=== PATIENT | female | born 1985 | race Caucasian/White ===

== ENCOUNTER → 2017-06-20 09:48 | Outpatient (CLI) | payer OTHER, SELFPAY ==
--- NOTE | 2017-06-20 10:01 | US_ITS ---
STUDY: SECOND AND THIRD TRIMESTER OBSTETRICAL ULTRASOUND REASON FOR EXAM: Female, 32 years old. Routine survey. LMP: January 26, 2017. TECHNIQUE: Transabdominal PRIOR ULTRASOUND: None. FINDINGS: There is a single intrauterine fetus. The fetus is in an transverse lie with the head on the maternal left side. There is demonstrated cardiac activity with a heart rate of 142 bpm. There is a normal amniotic fluid volume. The largest amniotic fluid pocket measures 4.54 cm. The amniotic fluid index (RG) is 14.6 cm. The placenta is right lateral in location and is not low lying. There are Grade 0 placental changes. The cervix measures 4.5 in length. The adnexal regions are not visualized. BIOMETRY: BPD: 4.88 cm: 20 weeks, 6 days HC: 18.42 cm: 20 weeks, 6 days AC: 15.68 cm: 20 weeks, 6 days FL: 3.47 cm: 21 weeks, 0 days CI: FL/BPD: 71% FL/HC: FL/AC: 22% HC/AC: 1.17 age by current US: 21 weeks, 0 days. JEAN CARLOS by current US: October 31, 2017. Estimated weight: 383 grams, +/- 56 grams, 53 %. Age by LMP: 20 weeks, 5 days. JEAN CARLOS by LMP: November 02, 2017.. ANATOMY: Gender: Male Cranium: Normal lateral ventricles. Normal choroid plexus. Normal cerebellum. Normal cisterna magna. Normal face, nose and lips. Chest: Normal 4-chamber heart. Abdomen/Pelvis: Normal diaphragm. Normal stomach. Normal abdominal wall. Normal cord insertion. Normal 3 vessel cord. Normal kidneys. Normal bladder. Spine: Normal cervical spine. Normal thoracic spine. Normal lumbar spine. Normal sacrum. Extremities: Normal bilateral upper extremities. Normal bilateral lower extremities. US/OB Anatomy Scan IMPRESSION: Single live uterine gestation with a mean gestational age of 21 weeks. Electronically Signed: Rickey Motley MD at 10:50 EST Tel [phone], Service support ,
== END ==
PROVIDERS: Family Provider Family Medicine; PCP Family Medicine; Visit Provider Obstetrics & Gynecology
DX: Z34.02 Encounter for supervision of normal first pregnancy, second trimester (principal)
CPT/HCPCS: 76805

== ENCOUNTER → 2017-09-09 12:15 | Outpatient (CLI) | payer OTHER, SELFPAY ==
--- NOTE | 2017-09-09 12:17 | US_ITS ---
STUDY: SECOND AND THIRD TRIMESTER OBSTETRICAL ULTRASOUND - LIMITED REASON FOR EXAM: Female, 32 years old. Routine survey. LMP: January 26, 2017. PRIOR ULTRASOUND: Comparison is made with prior examination dated June 20, 2017. TECHNIQUE: Transabdominal ultrasound evaluation was performed. FINDINGS: There is a single intrauterine fetus. The fetus is in a cephalic presentation. There is demonstrated cardiac activity with a heart rate of 136 bpm. There is a normal amniotic fluid volume. The largest amniotic fluid pocket measures 4.5 cm. The amniotic fluid index (RG) is 15.4 cm. The placenta is right lateral in location and is not low lying. There are Grade 1 placental changes. The cervix measures 4.5 cm in length. BIOMETRY: BPD: 8.41 cm: 34 weeks, 0 days HC: 30.14 cm: 33 weeks, 4 days AC: 29.51 cm: 33 weeks, 4 days FL: 6.42 cm: 33 weeks, 2 days Age by LMP: 32 weeks, 2 days. JEAN CARLOS by LMP: November 02, 2017. age by prior US: 32 weeks, 4 days. JEAN CARLOS by prior US: October 31, 2017. age by current US: 33 weeks, 5 days. JEAN CARLOS by current US: October 23, 2017. Estimated weight: 2192 grams, +/- 320 grams, 76 percentile. Gender: Male US/OB Limited With Biometrics IMPRESSION: There is a single live intrauterine gestation with a mean gestational age of 32 weeks and 4 days. The measurements obtained today fall within normal expected range. Electronically Signed: Rickey Motley MD at 14:37 EDT Tel [phone], Service support ,
== END ==
PROVIDERS: Family Provider Family Medicine; PCP Family Medicine; Visit Provider Obstetrics & Gynecology
DX: Z87.59 Personal history of other complications of pregnancy, childbirth and the puerperium (principal); Z3A.30 30 weeks gestation of pregnancy
CPT/HCPCS: 76816

== ENCOUNTER 2017-10-24 10:45 | Inpatient (IN) | payer OTHER, SELFPAY ==
--- NOTE | 2017-10-24 | PLAC_PTH ---
PATIENT: NOEMY LEARY LOC: [facility] U#:[id number] AGE/SX: 32/F ROOM: WP020 RE10/24/[address]: Dr. Nicolas Hong MD : [id number] BED: 1 DIS: 10/26/2017 SPEC #: [id number] RECD: 10/26/17 10:14 STATUS: TRE REPaulo #: [id number] JEN: 10/24/17 00:[address]: Nicolas Hong DEPT: SURGICAL PATHOLOGY RECD BY: Jaron Correia ENTERED: 10/26/17 10:15 SP TYPE: PLACENTA OTHR DR: Dr. Kia Wall DO Tissues: A - Vagina, NOS B - Placenta, NOS Procedures: Surgery Specimen Level III Surgery Specimen Level V HEADER OPERATION: Vaginal delivery PRE-OP DIAGNOSIS: Vaginal cyst; placenta abruption, nonreassuring heart tracing TISSUE SUBMITTED: A - Vaginal cyst, B - Placenta MICROSCOPIC DIAGNOSIS A. Vaginal cyst, biopsy: Consistent with Bartholin gland cyst. B. Placenta: Placental disc ? Bilobated placental disc (383 grams). - Focal chronic vasculitis of unknown etiology - Focal chronic inflammation decidual, maternal surface. Membranes ? No pathologic diagnosis Umbilical cord ? Three blood vessels, no pathologic diagnosis JUAN C:abhay 10/27/17 COMMENT Case has been reviewed in consultation with Dr. Vilchis who concurs with the above diagnosis. IDC:AM MICROSCOPIC DESCRIPTION Slides are reviewed. GROSS DESCRIPTION A ? Received in fixative is one container labeled with the patient's name and designated not further designated. Received is a piece of edward cyst with mucoid material measuring 0.6 x 0.6 x 0.3 cm. The specimen is bisected and submitted entirely in one cassette. JUAN C/abhay 10/25/17 B - SPECIMEN: PLACENTA / CLINICAL INFORMATION: A. Weight: 2.985 kg B. Gestational Age: 38 weeks C. Sex: Male PLACENTAL WEIGHT (POST FIXATION): 383 grams PLACENTAL DIMENSIONS: 26 x 17 x 2 cm, larger lobe measures 17 x 16 x 2 cm, and the smaller lobe measures 9 x 10 x 1.5. PLACENTAL SHAPE: Bilobated PLACENTAL WEIGHT FOR GESTATIONAL AGE: Within 10-99th percentile. MEMBRANES - Present A. Insertion: Marginal B. Site of rupture from edge: 6 cm from edge of placental disc C. Color of membrane: Edward-landeros D. Abnormalities: None UMBILICAL CORD - Present A. Color: Edward-landeros B. Insertion: Central C. Length: 32 cm D. Diameter: 1 cm E. Number of vessels: Three F. Abnormalities: None PLACENTAL DISC - Present A. Color of surface: Edward-landeros B. surface abnormalities: None C. Maternal cotyledons: Intact with minimal tears D. Attached retro placental clot: No clot E. Cut surface: Dark red and spongy F. Lesions: None G. Separate clot: Absent SECTIONS SUBMITTED: 1. Membrane roll 2. Cord, maternal end 3. Cord, end 4. Smaller lobe. 5. Placental disc, and maternal surfaces 6. Placental disc, and maternal surfaces SJ:abhay 10/26/17 TC: 5 CPT: 62284, 64300
[2017-10-24] MEDS: Lactated Ringers 1,000 ML 50 ML IV ×2 (11:15→12:16)
[2017-10-24 11:31] LABS: Hematocrit 37.5 % (37-47); Hemoglobin 13.1 g/dl (12.0-15.0); Mean Corp Hgb Conc 34.9 g/gl (32-36); Mean Corpuscular Volume 91.5 fL (81-99); Mean Platelet Vol. 12.5 fl (6.2-12.0); Platelet Count 201 K/mm3 (150-450); RBC Distribution Width CV 12.8 % (11.6-14.6); RBC Distribution Width SD 42.3 fl (35.1-43.9); Scan Indicated on CBC? Y/N NO; White Blood Count 10.3 K/mm3 (4.4-11.0)
[2017-10-24 11:46] VITALS: BMI 23.1
[2017-10-24] MEDS: fentaNYL-bupivacaine (epidural) 100 ML BAG EPIDURAL (12:45)
[2017-10-24] MEDS: Oxytocin 30 units/NS 500 ml 30 UNITS/500 ML IV.SOLN 334 UNITS IV (13:58)
--- NOTE | 2017-10-24 14:27 | PCM.HP.OB ---
History Date of Admission: 10/24/17 Final JEAN CARLOS: 11/02/17 Final JEAN CARLOS Source: LMP Gestational age: 38 Weeks and 5 Days History of this : This is a 32 year-old, G [], P [], at 38 weeks gestational age. Allergies No Known Allergies Allergy (Verified 05/21/13 07:39) Home Medications: Home Medications Vits [Prenatabs FA ] 1 tablet PO DAILY 05/21/13 Magnesium 250 mg PO DAILY 10/24/17 Smoking Status: Never smoker Alcohol: None History Past Pregnancies: h/o IUGR see [facility] H&P Past Pregnancies Delivery Date Name GA/Weeks Outcome Route Weight Infant Gender Labor Length Anesthesia Delivery Location Provider FOB Labs: GBS positive Physical Exam General: Alert, Oriented x3 Assessment/Plan 32yo female at 38&5 now s/p vacuum assisted vaginal delivery Routine care Please see vaginal delivery note
--- NOTE | 2017-10-24 14:30 | PCM.OB.VAG ---
Vaginal Delivery Maternal Presentation: Active Labor Amniotic Membrane Rupture Type: Artificial Amniotic Fluid Description: Bloody Final JEAN CARLOS: 11/02/17 Gestational age: 38 Weeks and 5 Days Date of Procedure: 10/24/17 Pre-Operative Diagnosis: Placental abruption, Non-reassuring heart tracing Post-Operative Diagnosis: Same Surgery/ Procedure Performed: Vacuum Assisted Vaginal Delivery - Excision of vaginal wall cyst Type of Anesthesia: Epidural Description of Procedure: Called when patient 7cm & had prolonged deceleration. Upon arrival to OB unit fhts were 120's. AROM for bloody fluid. Patient 8-9/C/0. She quickly progressed to anterior lip & then complete. Patient was prepped & draped in stirrups. Bladder was emptied via straight catheter. She pushed well to +2 station. Fhts were persistent in the 70's and decision made to use the vacuum. Fetus had already been confirmed in the OA position. Vacuum placed & position confirmed on head. With next ctx the head delivered with 1 pull of the vacuum. No pop-offs. Shoulders & body easily followed. Infant placed on maternal abdomen. 3vc clamped & cut in delayed fashion. Placenta delivered with minimal traction. Good uterine tone obtained. Vaginal cyst about 1cm noted to be on posterior vaginal wall was draining fluid & torn from delivery. The cyst was excised using scissors. This area was repaired with 3-0 vicryl while repairing the 2nd degree laceration. Presentation: DORIAN Placental Delivery Description: Spontaneous Placenta Disposition: [facility] Cord Vessel Description: 3 Vessels Cord Entanglement: None Estimated Blood Loss: 400ml A gender: Male (1 minute): 8 (5 minute): 9 Episiotomy Description: None Laceration: 2nd degree - perineal - repaired with 3-0 vicryl Medications given after delivery: IV Pitocin Complications: None
--- NOTE | 2017-10-24 14:41 | OP.PCM_ITS ---
Vaginal Delivery Maternal Presentation: Active Labor Amniotic Membrane Rupture Type: Artificial Amniotic Fluid Description: Bloody Final JEAN CARLOS: 11/02/17 Gestational age: 38 Weeks and 5 Days Date of Procedure: 10/24/17 Pre-Operative Diagnosis: Placental abruption, Non-reassuring heart tracing Post-Operative Diagnosis: Same Surgery/ Procedure Performed: Vacuum Assisted Vaginal Delivery - Excision of vaginal wall cyst Type of Anesthesia: Epidural Description of Procedure: Called when patient 7cm & had prolonged deceleration. Upon arrival to OB unit fhts were 120's. AROM for bloody fluid. Patient 8-9/C/0. She quickly progressed to anterior lip & then complete. Patient was prepped & draped in stirrups. Bladder was emptied via straight catheter. She pushed well to +2 station. Fhts were persistent in the 70's and decision made to use the vacuum. Fetus had already been confirmed in the OA position. Vacuum placed & position confirmed on head. With next ctx the head delivered with 1 pull of the vacuum. No pop-offs. Shoulders & body easily followed. Infant placed on maternal abdomen. 3vc clamped & cut in delayed fashion. Placenta delivered with minimal traction. Good uterine tone obtained. Vaginal cyst about 1cm noted to be on posterior vaginal wall was draining fluid & torn from delivery. The cyst was excised using scissors. This area was repaired with 3- 0 vicryl while repairing the 2nd degree laceration. Presentation: DORIAN Placental Delivery Description: Spontaneous Placenta Disposition: [facility] Cord Vessel Description: 3 Vessels Cord Entanglement: None Estimated Blood Loss: 400ml Infant A gender: Male (1 minute): 8 (5 minute): 9 Episiotomy Description: None Laceration: 2nd degree - perineal - repaired with 3-0 vicryl Medications given after delivery: IV Pitocin Complications: None
[2017-10-24] MEDS: 0.9% Saline Lock 10 ML Syringe IV (15:43)
[2017-10-24 19:58] VITALS: BP 155/99; PULSE 76; RESP 20; TEMP 37.3
[2017-10-24 20:00] VITALS: BP 140/91
[2017-10-25 00:45] VITALS: BP 130/76; PULSE 73; RESP 18; TEMP 36.8
--- NOTE | 2017-10-25 02:20 | NURSING ---
Taking over pt care at this time.
[2017-10-25] MEDS: Ibuprofen 600 MG Tablet PO ×2 (04:23→22:58)
[2017-10-25 04:28] VITALS: BP 140/87; PULSE 65; RESP 18; TEMP 36.4; O2SAT 97
[2017-10-25 06:51] LABS: Pathology Specimen OB SEE PATHOLOGY REPORT
[2017-10-25 08:30] VITALS: BP 113/72; PULSE 80; RESP 16; TEMP 36.9; O2SAT 96
[2017-10-25 11:57] VITALS: BP 127/80; PULSE 78; TEMP 36.6; O2SAT 96
--- NOTE | 2017-10-25 13:16 | PCM.PN.OB ---
Subjective: No complaints - Physical Exam General: Alert, Oriented x3 Abdomen: Soft, Non Tender, Non-Distended - ff mid & below umb Extremities: No Calf Tenderness Vital Signs Temp Pulse Resp BP Pulse Ox 97.8 F 78 16 127/80 H 96 10/25/17 11:57 10/25/17 11:57 10/25/17 08:30 10/25/17 11:57 10/25/17 11:57 Oxygen Delivery Method Room Air Weight: 130 lb 4.691 oz Body Mass Index (BMI) 23.1 Intake and Output for Last 24 Hours 10/23/17 10/24/17 10/25/17 23:59 23:59 23:59 Output Total 700 / 700 Balance -700 / -700 Medical Necessity - Tobacco Use Smoking Status: Never smoker Assessment/Plan PPD#1 Routine care
--- NOTE | 2017-10-25 13:18 | DCINST_ITS ---
Discharge Diet: No Restrictions Discharge Activity: May Drive, May Shower May resume sexual activity in: 4-6 weeks Additional Instructions: If you experience any of the following, contact your healthcare provider. * Bleeding that soaks a pad every hour for 2 hours * Fever 100.4 or higher * Unrelieved incision or abdominal pain * Swelling, redness, discharge or bleeding from your incision or episiotomy site * Your incision begins to separate * Problems urinating (including inability to urinate or burning while urinating) . * Visual changes * Severe headache * Flu-like symptoms * Pain or redness in one of both of your breasts * Pain, warmth, tenderness or swelling in your legs, especially the calf area * Frequent nausea and vomiting * Symptoms of depression or anxiety If you experience any of the following, call 911 or go to the nearest Emergency Room. * Chest pain * Problems breathing * Seizure activity * Partial or complete paralysis of a body part, slurred speech, weakness or drooping of the face, or a sudden inability to walk or hold your balance Allergies/Adverse Reactions: Allergies No Known Allergies Allergy (Verified 05/21/13 07:39) Medications to take at Discharge Vits [Prenatabs FA ] 1 tablet PO DAILY 05/21/13 Magnesium 250 mg PO DAILY 10/24/17 Primary Care Physician: Kia Wall DO [Primary Care Provider] -
--- NOTE | 2017-10-25 13:18 | PCM.DCVAG ---
Discharge Diet: No Restrictions Discharge Activity: May Drive, May Shower May resume sexual activity in: 4-6 weeks Additional Instructions: If you experience any of the following, contact your healthcare provider. Bleeding that soaks a pad every hour for 2 hours Fever 100.4 or higher Unrelieved incision or abdominal pain Swelling, redness, discharge or bleeding from your incision or episiotomy site Your incision begins to separate Problems urinating (including inability to urinate or burning while urinating). Visual changes Severe headache Flu-like symptoms Pain or redness in one of both of your breasts Pain, warmth, tenderness or swelling in your legs, especially the calf area Frequent nausea and vomiting Symptoms of depression or anxiety If you experience any of the following, call 911 or go to the nearest Emergency Room. Chest pain Problems breathing Seizure activity Partial or complete paralysis of a body part, slurred speech, weakness or drooping of the face, or a sudden inability to walk or hold your balance Allergies/Adverse Reactions: Allergies No Known Allergies Allergy (Verified 05/21/13 07:39) Medications to take at Discharge Vits [Prenatabs FA ] 1 tablet PO DAILY 05/21/13 Magnesium 250 mg PO DAILY 10/24/17 Primary Care Physician: Kia Wall DO [Primary Care Provider] -
[2017-10-25 15:53] VITALS: BP 124/86; PULSE 89; TEMP 36.7; O2SAT 97
[2017-10-25 20:11] VITALS: BP 124/87; PULSE 86; RESP 16; TEMP 36.9; O2SAT 98
[2017-10-26 03:00] VITALS: BP 118/71; PULSE 73; RESP 18; TEMP 36.9; O2SAT 98
[2017-10-26 08:50] VITALS: BP 121/82; PULSE 76; RESP 18; TEMP 36.8
--- NOTE | 2017-10-26 09:05 | PCM.PN.OB ---
Subjective: Doing well per patient and nursing staff. Ambulating and taking PO without difficulty. No complaint. Pain controlled. Planning D/C home today. Awaiting bilirubin level for baby, under bili lights at this time. without difficulty. - Physical Exam General: Alert, Oriented x3, Cooperative HEENT: Atraumatic, PERRLA, EOMI, Normocephalic Lungs: Clear to auscultation, No rhonchi, No wheeze Cardiovascular: Regular rate, Regular Rhythm, No murmurs Abdomen: Bowel Sounds Present, Soft, Non Tender, - - Fundus firm 2 below U Extremities: No edema Psych/Mental Status: Normal Affect, Appropriate Vital Signs Temp Pulse Resp BP Pulse Ox 98.4 F 73 18 118/71 98 10/26/17 03:00 10/26/17 03:00 10/26/17 03:00 10/26/17 03:00 10/26/17 03:00 Oxygen Delivery Method Room Air Weight: 130 lb 4.691 oz Body Mass Index (BMI) 23.1 Intake and Output for Last 24 Hours 10/24/17 10/25/17 10/26/17 23:59 23:59 23:59 Output Total 700 / 700 Balance -700 / -700 Medical Necessity - Tobacco Use Smoking Status: Never smoker Assessment/Plan A: PPD#2 with vaccum extraction P: 1) Planning D/C home today. Routine discharge and orders. 2) Return in 6 weeks for visit. 3) Declines any LARC
[2017-10-26 14:45] VITALS: BP 122/82; PULSE 72; RESP 16; TEMP 36.9
== END 2017-10-26 15:00 | disposition home or self-care (01) | DRG 774 ==
PROVIDERS: Admitting Provider Obstetrics & Gynecology; Family Provider Family Medicine; PCP Family Medicine; Visit Provider Obstetrics & Gynecology
DX: O99.824 Streptococcus B carrier state complicating childbirth (principal); O45.93 Premature separation of placenta, unspecified, third trimester; O76 Abnormality in fetal heart rate and rhythm complicating labor and delivery; O70.1 Second degree perineal laceration during delivery; O75.89 Other specified complications of labor and delivery; Z37.0 Single live birth; Z3A.38 38 weeks gestation of pregnancy
CPT/HCPCS: 59025; 59050; 85027; 86850; 86900; 88304; 88307; 99218; J7120; A4216; G0378

== ENCOUNTER 2017-10-26 20:02 | Outpatient (CLI) | payer OTHER, SELFPAY | END 2017-10-26 21:15 | disposition home or self-care (01) | LOC: WPOUT 20:04 → WP 20:04 | PROVIDERS: Family Provider Family Medicine; PCP Family Medicine; Visit Provider Obstetrics & Gynecology | DX: R63.3 Feeding difficulties (principal) | CPT/HCPCS: 96152 ==

== ENCOUNTER → 2019-03-21 15:38 | Outpatient (CLI) | payer OTHER, SELFPAY ==
[2019-03-21 17:47] LABS: Free T3 3.1 pg/mL (2.18-3.98); T4 Free Direct 0.93 ng/dL (0.76-1.46); Thyroid Stim Hormone (TSH) 0.18 uIU/mL (0.358-3.74)
[2019-03-23 16:08] LABS: Thyroid Peroxidase AB 60 IU/mL (0-34)
[2019-03-23 18:45] LABS: Thyroglobulin Antibody 1.5 IU/mL (0.0-0.9)
== END ==
PROVIDERS: Family Provider Family Medicine; PCP Family Medicine; Visit Provider Family Medicine
DX: R53.83 Other fatigue (principal); R94.6 Abnormal results of thyroid function studies
CPT/HCPCS: 36415; 84439; 84443; 84481; 86376; 86800

== ENCOUNTER → 2019-08-23 08:45 | Outpatient (CLI) | payer OTHER, SELFPAY ==
[2019-08-23 10:16] LABS: Free T3 3.1 pg/mL (2.18-3.98); T4 Free Direct 0.85 ng/dL (0.76-1.46)
== END ==
PROVIDERS: PCP Family Medicine; Referring Provider Internal Medicine Endocrinology, Diabetes & Metabolism; Visit Provider Internal Medicine Endocrinology, Diabetes & Metabolism
DX: E05.90 Thyrotoxicosis, unspecified without thyrotoxic crisis or storm (principal)
CPT/HCPCS: 36415; 84439; 84443; 84481

== ENCOUNTER → 2021-02-14 | Outpatient (CLI) | payer OTHER, SELFPAY | END | disposition home or self-care (01) | LOC: LABSPEC 09:01 | PROVIDERS: PCP Family Medicine; Visit Provider Physician Assistant | DX: Z11.52 Encounter for screening for COVID-19 (principal) | CPT/HCPCS: 87635; U0005; U0003 ==

== ENCOUNTER 2021-05-31 11:17 | Outpatient (CLI) | payer OTHER, SELFPAY ==
[2021-05-31 15:21] LABS: Absolute Neutrophil Count 3.4 X10^3/uL (2.0-7.7); Basophil# 0.04 X10^3/uL; Basophil% 0.7 % (0-1); Eosinophil# 0.08 X10^3/uL; Eosinophils% 1.4 % (0-5); Hematocrit 36.4 % (37-47); Hemoglobin 11.8 g/dL (12.0-15.0); Lymphocyte % 31.6 % (19-41); Mean Corp Hgb Conc 32.4 g/dL (32-36); Mean Corpuscular Hgb 30.7 pg (27.0-32.0); Mean Corpuscular Volume 94.8 fL (81-99); Mean Platelet Vol. 11.6 fl (6.2-12.0); Monocyte# 0.42 X10^3/uL; Monocyte% 7.4 % (0-10); NRBC Flagged by Analyzer 0 % (0-5); Neutrophil # 3.35 X10^3/uL (2.7-7.7); Neutrophil % 58.7 % (47-70); Platelet Count 297 K/mm3 (150-450); RBC Distribution Width CV 12.9 % (11.6-14.6); RBC Distribution Width SD 44.8 fl (35.1-43.9); Red Blood Count 3.84 M/mm3 (4.2-5.4); White Blood Count 5.7 K/mm3 (4.4-11.0)
[2021-05-31 15:43] LABS: AST(SGOT) 17 U/L (15-37); Alanine Aminotransfer ALT/SGPT 23 U/L (13-56); Alkaline Phosphatase 84 U/L (45-117); Anion Gap 6 (5-15); BUN 14 mg/dL (7-18); BUN/Creat Ratio 18.6 RATIO (10-20); Calcium,Total 8.6 mg/dL (8.5-10.1); Chloride 106 mmol/L (98-107); Creatinine, Serum 0.75 mg/dL (0.55-1.02); EST Glomerular Filtration Rate 91 mL/min (>60); Est Glom Filt Rate - Afr Amer 111 mL/min (>60); Globulin 4.2 g/dL (2.2-4.2); Glucose 74 mg/dL (74-106); Potassium 3.6 mmol/L (3.5-5.1); Protein, Total 8.2 g/dL (6.4-8.2); Sodium Level 138 mmol/L (136-145); T4 Free Direct 0.72 ng/dL (0.76-1.46); T4 Total, Thyroxin 5.5 ug/dL (4.8-13.9); Thyroid Stim Hormone (TSH) 3.55 uIU/mL (0.358-3.74)
[2021-06-04 09:53] LABS: Free T3 2.9 pg/mL (2.18-3.98)
[2021-06-10 09:54] LABS: Thyroglobulin RIA 20 ng/mL (.); Thyroid Peroxidase AB 550 IU/mL (0-34)
== END 2021-05-31 23:59 | disposition short-term general hospital (02) ==
PROVIDERS: PCP Family Medicine; Referring Provider Family Medicine; Visit Provider Family Medicine
DX: E03.9 Hypothyroidism, unspecified (principal); Z51.81 Encounter for therapeutic drug level monitoring
CPT/HCPCS: 36415; 80053; 84432; 84436; 84439; 84443; 84481; 85025; 86376; 86800

== ENCOUNTER → 2021-08-28 | Outpatient (CLI) | payer OTHER, SELFPAY ==
[2021-08-28 10:24] LABS: Free T3 2.7 pg/mL (2.18-3.98); T4 Free Direct 0.89 ng/dL (0.76-1.46); Thyroid Stim Hormone (TSH) 0.99 uIU/mL (0.358-3.74)
== END | disposition home or self-care (01) ==
LOC: MTLAB 08:39
PROVIDERS: PCP Family Medicine; Referring Provider Family Medicine; Visit Provider Family Medicine
DX: E03.9 Hypothyroidism, unspecified (principal)
CPT/HCPCS: 36415; 84439; 84443; 84481

== ENCOUNTER → 2022-05-22 | Outpatient (CLI) | payer OTHER, SELFPAY ==
[2022-05-22 10:18] LABS: Hematocrit 39.1 % (37-47); Mean Corp Hgb Conc 33.2 g/dL (32-36); Mean Corpuscular Volume 93.3 fL (81-99); Mean Platelet Vol. 11.7 fl (6.2-12.0); Platelet Count 223 K/mm3 (150-450); RBC Distribution Width CV 12.3 % (11.6-14.6); RBC Distribution Width SD 42.5 fl (35.1-43.9); Red Blood Count 4.19 M/mm3 (4.2-5.4); White Blood Count 6.4 K/mm3 (4.4-11.0)
[2022-05-22 10:24] LABS: NATERA MAILED SPECIMEN
[2022-05-22 11:29] LABS: HIV - WCH Non-Reactive (Nonreactive); Hepatitis B Surface Antibody Reactive; Hepatitis C Antibody Non-Reactive (Nonreactive); Rubella IgG Reactive (Nonreactive); Syphilis Antibodies Non-reactive
== END | disposition home or self-care (01) ==
LOC: MTLAB 09:12
PROVIDERS: PCP Family Medicine; Referring Provider Obstetrics & Gynecology; Visit Provider Obstetrics & Gynecology
DX: O09.41 Supervision of pregnancy with grand multiparity, first trimester (principal); O09.521 Supervision of elderly multigravida, first trimester
CPT/HCPCS: 36415; 85027; 86703; 86706; 86762; 86780; 86803; 86850; 86900; 86901

== ENCOUNTER → 2022-06-18 | Outpatient (CLI) | payer OTHER, SELFPAY ==
[2022-06-18 11:24] LABS: Thyroid Stim Hormone (TSH) 0.05 uIU/mL (0.358-3.74)
== END | disposition home or self-care (01) ==
PROVIDERS: PCP Family Medicine; Referring Provider Obstetrics & Gynecology; Visit Provider Obstetrics & Gynecology
DX: O09.522 Supervision of elderly multigravida, second trimester (principal); Z3A.15 15 weeks gestation of pregnancy
CPT/HCPCS: 36415; 84443

== ENCOUNTER → 2022-07-04 | Outpatient (CLI) | payer OTHER, SELFPAY ==
--- NOTE | 2022-07-04 09:24 | US_ITS ---
STUDY: SECOND AND THIRD TRIMESTER OBSTETRICAL ULTRASOUND REASON FOR EXAM: Female, 37 years old advanced maternal age -- anatomy LMP: February 19, 2022. TECHNIQUE: Transabdominal and Transvaginal TECHNICAL QUALITY: Adequate. PRIOR ULTRASOUND: None. FINDINGS: There is a single intrauterine fetus. The fetus is in an transverse lie with the head on the maternal left side. There is demonstrated cardiac activity with a heart rate of 160 bpm. There is a normal amniotic fluid volume. The largest amniotic fluid pocket measures 3.6 cm x 2.6 cm. The amniotic fluid index (RG) is within normal limits. The placenta is posterior in location and is not low lying. There are Grade 0 placental changes. The cervix measures 3.8 cm in length. The adnexal regions are not visualized. BIOMETRY: BPD: 4.12 cm: 18 weeks, 3 days HC: 16.04 cm: 18 weeks, 6 days AC: 13.72 cm: 19 weeks, 1 days FL: 2.98 cm: weeks, 1 days CI: 72.63% FL/BPD: 72.38% FL/HC: FL/AC: 21.75% HC/AC: 1.17 age by current US: 19 weeks, 0 days. JEAN CARLOS by current US: November 28, 2022. Estimated weight: 274 grams, +/- 41 grams, 34 %. Age by LMP: 19 weeks, 2 days. JEAN CARLOS by LMP: November 26, 2022. ANATOMY: Gender: Female Cranium: Normal lateral ventricles. Normal choroid plexus. Normal cerebellum. Normal cisterna magna. Normal face, nose and lips. Chest: Normal 4-chamber heart. Abdomen/Pelvis: Normal diaphragm. Normal stomach. Normal abdominal wall. Normal cord insertion. Normal 3 vessel cord. Normal kidneys. Normal bladder. Spine: Normal cervical spine. Normal thoracic spine. Normal lumbar spine. Normal sacrum. Extremities: Normal bilateral upper extremities. Normal bilateral lower extremities. US/OB Anatomy w/ Transvaginal IMPRESSION: Single live uterine gestation with mean gestational age of 19 weeks. Electronically Signed: Rickey Motley MD at 8:15 EST ,
== END | disposition home or self-care (01) ==
LOC: US 09:22
PROVIDERS: PCP Family Medicine; Visit Provider Obstetrics & Gynecology
DX: O09.519 Supervision of elderly primigravida, unspecified trimester (principal); Z3A.00 Weeks of gestation of pregnancy not specified
CPT/HCPCS: 76805; 76817

== ENCOUNTER → 2022-08-26 | Outpatient (CLI) | payer OTHER, SELFPAY ==
[2022-08-26 12:25] LABS: Absolute Lymphocyte Count 1.92 X10^3/uL (0.83-4.51); Basophil# 0.03 X10^3/uL; Basophil% 0.3 % (0-1); Eosinophils% 1.1 % (0-5); Hematocrit 34.1 % (37-47); Hemoglobin 11.3 g/dL (12.0-15.0); Lymphocyte # 1.92 X10^3/ul (0.83-4.51); Lymphocyte % 21.4 % (19-41); Mean Corp Hgb Conc 33.1 g/dL (32-36); Mean Corpuscular Hgb 31.7 pg (27.0-32.0); Mean Corpuscular Volume 95.5 fL (81-99); Mean Platelet Vol. 11.5 fl (6.2-12.0); Monocyte# 0.83 X10^3/uL; Monocyte% 9.3 % (0-10); NRBC Flagged by Analyzer 0 % (0-5); Neutrophil # 6.02 X10^3/uL (2.7-7.7); Neutrophil % 67.1 % (47-70); Platelet Count 209 K/mm3 (150-450); RBC Distribution Width CV 13.1 % (11.6-14.6); RBC Distribution Width SD 45.5 fl (35.1-43.9); Red Blood Count 3.57 M/mm3 (4.2-5.4)
[2022-08-26 13:06] LABS: Glucose Challenge Gest 1H 50g 104 mg/dL (70-140); Thyroid Stim Hormone (TSH) 0.04 uIU/mL (0.358-3.74)
[2022-08-26 13:13] LABS: Syphilis Antibodies Non-reactive
[2022-08-27 11:30] LABS: Free T3 2.8 pg/mL (2.18-3.98); T4 Free Direct 1.03 ng/dL (0.76-1.46)
== END | disposition home or self-care (01) ==
LOC: LAB 10:43
PROVIDERS: PCP Family Medicine; Referring Provider Obstetrics & Gynecology; Visit Provider Obstetrics & Gynecology
DX: O09.899 Supervision of other high risk pregnancies, unspecified trimester (principal); Z3A.00 Weeks of gestation of pregnancy not specified; O99.280 Endocrine, nutritional and metabolic diseases complicating pregnancy, unspecified trimester; E05.90 Thyrotoxicosis, unspecified without thyrotoxic crisis or storm
CPT/HCPCS: 36415; 82950; 84439; 84443; 84481; 85025; 86780

== ENCOUNTER → 2022-09-18 | Outpatient (CLI) | payer OTHER, SELFPAY ==
--- NOTE | 2022-09-18 08:51 | US_ITS ---
STUDY: ABDOMINAL ULTRASOUND - RIGHT UPPER QUADRANT REASON FOR VISIT: Female, 37 years old RUQ PAIN TECHNIQUE: Ultrasound evaluation of the right upper quadrant was performed with real-time and static landeros-scale imaging. TECHNICAL QUALITY: Adequate. COMPARISON: None. FINDINGS: Liver: The liver measures 11.6 cm. There is normal echogenicity of the liver. The bile ducts are within normal limits. There is hepatic color flow. The direction of portal flow is hepatopetal. There is no demonstrated mass lesion. Gallbladder: Normal distended gallbladder. The gallbladder wall measures 2.6 mm. There is a negative sonographic Webster''s sign. There is no pericholecystic fluid. There are no gallstones. Common Bile Duct (C.B.D.): The common bile duct measures 2.6 mm. Pancreas: Normal size of the head, body of the pancreas. The tail portion of the pancreas is obscured due to overlying bowel gas. There is normal echogenicity of the pancreas. There is no demonstrated pancreatic mass or cyst. Right Kidney: Normal size of the right kidney. The right kidney measures 11 cm x 5.3 cm x 5 cm. Normal renal cortex. The right cortex measures 1.8 cm. There is no demonstrated renal mass or cyst. There is no right hydronephrosis. US/Abdomen Limited IMPRESSION: Normal right upper quadrant ultrasound examination. Electronically Signed: Rickey Motley MD at 14:18 EDT ,
== END | disposition home or self-care (01) ==
LOC: US 08:49
PROVIDERS: PCP Family Medicine; Referring Provider Obstetrics & Gynecology; Visit Provider Obstetrics & Gynecology
DX: R10.11 Right upper quadrant pain (principal)
CPT/HCPCS: 76705

== ENCOUNTER → 2022-10-27 | Outpatient (CLI) | payer OTHER, SELFPAY ==
--- NOTE | 2022-10-27 08:52 | US_ITS ---
STUDY: SECOND AND THIRD TRIMESTER OBSTETRICAL ULTRASOUND - LIMITED REASON FOR EXAM: Female, 37 years old IUGR in previous LMP: February 19, 2022. PRIOR ULTRASOUND: Comparison is made with prior study dated July 04, 2022. TECHNIQUE: Transabdominal TECHNICAL QUALITY: Adequate. FINDINGS: There is a single intrauterine fetus. The fetus is in a cephalic presentation. There is demonstrated cardiac activity with a heart rate of 122 bpm. There is a normal amniotic fluid volume. The largest amniotic fluid pocket measures 6.4 cm x 2.9 cm. The amniotic fluid index (RG) is 17.9 cm. The placenta is posterior in location and is not low lying. There are Grade 1 placental changes. The cervix measures 4 cm in length. BIOMETRY: BPD: 8.74 cm: 35 weeks, 2 days HC: 31.95 cm: 36 weeks, 0 days AC: 31.24 cm: 35 weeks, 1 days FL: 6.87 cm: 35 weeks, 2 days Age by LMP: 35 weeks, 5 days. JEAN CARLOS by LMP: November 26, 2022. age by prior US: 35 weeks, 3 days. JEAN CARLOS by prior US: November 28, 2022. age by current US: 35 weeks, 0 days. JEAN CARLOS by current US: December 02, 2019. Estimated weight: 2656 grams, +/- 398 grams, 40 percentile. US/OB Limited With Biometrics IMPRESSION: Single live intrauterine gestation with a mean gestational age of 35 weeks and 3 days. The measurements obtained today fall within normal expected range. Electronically Signed: Rickey Motley MD at 9:36 EDT ,
== END | disposition home or self-care (01) ==
LOC: OPUS 08:50
PROVIDERS: PCP Family Medicine; Visit Provider Obstetrics & Gynecology
DX: Z34.90 Encounter for supervision of normal pregnancy, unspecified, unspecified trimester (principal); Z3A.00 Weeks of gestation of pregnancy not specified
CPT/HCPCS: 76816

== ENCOUNTER 2022-11-20 12:27 | Outpatient (CLI) | payer OTHER, SELFPAY ==
[2022-11-20] VITALS (11 sets, daily range): BP systolic 121–137; BP diastolic 84–93; PULSE 67–80; TEMP 36.9; O2SAT 99; BMI 23.6
[2022-11-20 13:15] LABS: Hematocrit 38.3 % (37-47); Hemoglobin 12.7 g/dL (12.0-15.0); Mean Corp Hgb Conc 33.2 g/dL (32-36); Mean Corpuscular Hgb 30.8 pg (27.0-32.0); Mean Platelet Vol. 12.6 fl (6.2-12.0); Platelet Count 219 K/mm3 (150-450); RBC Distribution Width CV 12.7 % (11.6-14.6); RBC Distribution Width SD 43.5 fl (35.1-43.9); Red Blood Count 4.12 M/mm3 (4.2-5.4); White Blood Count 9.5 K/mm3 (4.4-11.0)
[2022-11-20 13:26] LABS: AST(SGOT) 15 U/L (15-37); Alanine Aminotransfer ALT/SGPT 19 U/L (13-56); Creatinine, Serum 0.44 mg/dL (0.55-1.02); EST Glomerular Filtration Rate 169 mL/min (>60); Est Glom Filt Rate - Afr Amer 204 mL/min (>60); Uric Acid 4.4 mg/dL (2.6-6.0)
[2022-11-20 14:40] LABS: Protein, Urine (Random) 7.7 mg/dL (<11.9); Protein:Creat Ratio 294 mg/g CRE (0-200)
--- NOTE | 2023-01-27 16:59 | OB.TRI.HP_ITS ---
HPI - General HPI Narrative NOEMY LEARY, is a 38 F who presents Maternal Data Information Gestational age: 39&1 PFSH [facility] Medical History (Updated 01/27/23 @ 16:[address] Nicolas Hong MD) Encounter for screening for COVID-19 First degree perineal laceration Gestational HTN Gestational hypertension Headache History of prior with IUGR Thyroid disorder Vaginal delivery Home Medications vits,calcium no.78-iron fumarate-folic acid 29 mg-1 mg tablet (Prenatabs FA) 1 tab PO DAILY vitamin 05/21/13 [History Last Taken 10/23/17 08:00 1 tab] Allergy/AdvReac Type Severity Reaction Status Date / Time No Known Allergies Allergy Verified 05/21/13 07:39 Social History Smoking Status: Never smoker History 6 Elective abortions Hx Para 4 Spontaneous abortions Hx # Term Pregnancies Ectopic pregnancies Hx # Pregnancies Multiple births # of living children 4 Assessment & Plan (1) Elevated blood pressure affecting in third trimester, antepartum: PLAN: Plan Reactive NST
== END 2022-11-20 15:55 | disposition home or self-care (01) ==
LOC: WPOUT 12:35 → WP 12:35
PROVIDERS: PCP Family Medicine; Referring Provider Obstetrics & Gynecology; Visit Provider Obstetrics & Gynecology
DX: O26.893 Other specified pregnancy related conditions, third trimester (principal); R03.0 Elevated blood-pressure reading, without diagnosis of hypertension; Z3A.39 39 weeks gestation of pregnancy
CPT/HCPCS: 36415; 59025; 59050; 82565; 82570; 84156; 84450; 84460; 84550; 85027

== ENCOUNTER 2022-11-21 07:05 | Inpatient (IN) | payer OTHER, SELFPAY ==
[2022-11-21] VITALS (50 sets, daily range): BP systolic 102–156; BP diastolic 57–101; PULSE 63–91; TEMP 36.8–37.6; O2SAT 81–99; BMI 23.7
[2022-11-21] MEDS: Lactated Ringers 1,000 ML 50 ML IV (07:40)
[2022-11-21 08:02] LABS: Absolute Lymphocyte Count 1.96 X10^3/uL (0.83-4.51); Absolute Neutrophil Count 5.6 X10^3/uL (2.0-7.7); Basophil# 0.04 X10^3/uL; Basophil% 0.5 % (0-1); Eosinophil# 0.06 X10^3/uL; Eosinophils% 0.7 % (0-5); Hematocrit 36.9 % (37-47); Hemoglobin 12.2 g/dL (12.0-15.0); Lymphocyte # 1.96 X10^3/ul (0.83-4.51); Lymphocyte % 23.4 % (19-41); Mean Corp Hgb Conc 33.1 g/dL (32-36); Mean Corpuscular Hgb 30.8 pg (27.0-32.0); Mean Corpuscular Volume 93.2 fL (81-99); Mean Platelet Vol. 12.7 fl (6.2-12.0); Monocyte# 0.71 X10^3/uL; Monocyte% 8.5 % (0-10); NRBC Flagged by Analyzer 0 % (0-5); Neutrophil # 5.58 X10^3/uL (2.7-7.7); Neutrophil % 66.5 % (47-70); Platelet Count 207 K/mm3 (150-450); RBC Distribution Width CV 12.8 % (11.6-14.6); RBC Distribution Width SD 43.8 fl (35.1-43.9); Red Blood Count 3.96 M/mm3 (4.2-5.4); White Blood Count 8.4 K/mm3 (4.4-11.0)
[2022-11-21] MEDS: 0.9% Normal Saline Single 100 ML IV.SOLN. INTRA-UTER (08:15)
--- NOTE | 2022-11-21 08:31 | PCM.HP.OB ---
HPI - General General Date of Admission: 11/21/22 Date of Service: 11/21/22 Chief Complaint: gHTN HPI Narrative NOEMY LEARY, is a 37 F who presents at 39w2d for scheduled IOL for gHTN and AMA. She denies PAUL, vision changes, upper abd pain, ctx, vb, lof. Good FM. [facility] Medical History (Updated 11/21/22 @ 08:[address] Abbi Keller, DO) Encounter for screening for COVID-19 Home Medications vits,calcium no.78-iron fumarate-folic acid 29 mg-1 mg tablet (Prenatabs FA) 1 tab PO DAILY vitamin 05/21/13 [History Last Taken 10/23/17 08:00 1 tab] magnesium 250 mg tablet 250 mg PO DAILY headaches 10/24/17 [History Last Taken 10/23/17 08:00 1 tab] Allergy/AdvReac Type Severity Reaction Status Date / Time No Known Allergies Allergy Verified 05/21/13 07:39 Social History Smoking Status: Never smoker History Elective abortions Hx Para 3 Spontaneous abortions Hx # Term Pregnancies Ectopic pregnancies Hx # Pregnancies Multiple births # of living children NST FHR Rate Baby A FHR Category:: Category I Vital Signs Vital Signs Vital Signs: 11/21/22 08:08 11/21/22 08:08 Pulse Rate 68 Pulse Ox 98 Weight Weight: 134 lb 2 oz Body Mass Index (BMI) 23.7 Physical Exam Const alert and no apparent distress General Appearance: comfortable GI soft to palpation and non-tender GI Narrative: [facility] Labs Labs: Blood Type O POSITIVE Antibody Screen NEGATIVE Hct 36.9 % (37-47) L Hgb 12.2 g/dL (12.0-15.0) Obstetrics US Syphilis Total Ab Non-reactive Rubella IgG Antibody Reactive (Nonreactive) HIV 1&2 Antibody Non-Reactive (Nonreactive) Glucose 1 Hr 50 gm 104 mg/dL (70-140) Rhogam given: No Miscellaneous Test Assessment & Plan (1) 39 weeks gestation of : PLAN: Patient presents for induction of labor for advanced maternal age in and gestational hypertension. Blood pressures are normal to mild range. Preeclampsia labs yesterday were normal. She denies any symptoms of pre eclampsia today. Penicillin for GBS positive. Intracervical Rao placed in usual fashion. Start Pitocin per protocol. Estimated weight expected to be less than 4500 g and pelvis adequate. Routine intrapartum care. (2) Multiparous: (3) Positive GBS test: (4) AMA (advanced maternal age) multigravida 35+: (5) Gestational hypertension:
[2022-11-21 08:47] LABS: Syphilis Antibodies Non-reactive
[2022-11-21] MEDS: Oxytocin 15 Units/NS 250ml 15 UNITS/250 ML IV.SOLN 2 UNITS IV (09:32)
[2022-11-21] MEDS: Penicillin G 3,000,000 Units 50 ML 100 UNITS IV ×3 (12:05→20:26)
[2022-11-21] MEDS: fentaNYL-bupivacaine (epidural) 100 ML BAG EPIDURAL ×2 (15:18→20:42)
[2022-11-21] MEDS: LACTATED RINGERS 500 ML 999 ML IV (16:53)
[2022-11-21] MEDS: Amnioinfusion- 0.9% NS 1,000 ML IV.SOLN. 1000 ML INTRA-UTER (18:20)
[2022-11-21] MEDS: Oxytocin 15 Units/NS 250ml 15 UNITS/250 ML IV.SOLN 83 UNITS IV (22:21)
--- NOTE | 2022-11-21 23:37 | PCM.OPRPT ---
Problems Associated Problem List Diagnoses (1) Gestational hypertension: (2) AMA (advanced maternal age) multigravida 35+: (3) Positive GBS test: (4) Multiparous: (5) 39 weeks gestation of : (6) Vaginal delivery: (7) First degree perineal laceration: Report of Operation Date of Procedure: 11/21/22 Pre-Operative Diagnosis: 39 week gestation, IOL, AMA, gHTN, single IUP Post-Operative Diagnosis: As above Surgery/Procedure Performed:: Repair of first degree vaginal laceration Description of Surgical Findings:: VFI in SOCORRO position. Normal appearing placenta with 3VC. 1st degree perineal laceration. Apgars 8, 9 Surgeon: Abbi Keller Type of Anesthesia: Epidural Special Medications: None Specimen's removed: Placenta Drains: Rao Estimated Blood Loss (mL): 100 Fluids Replaced: N/A Description of Procedure: Patient 10/100/+2 and draped. Patient pushing and head of delivered in right occiput anterior position. The anterior shoulder was delivered with gentle downward traction, followed by the posterior shoulder and body of the infant without any force or delay. A vigorous viable female was delivered atraumatically and placed on maternal abdomen. The cord was clamped and cut after a 60 second delay by the father of the baby. Cord blood was obtained. The placenta delivered with gentle fundal massage. The placenta was noted to be normal-appearing and intact with a three-vessel cord. The uterus was explored x1 and cleared of clot. A first-degree perineal laceration was repaired with 3-0 Vicryl. Sponge counts were correct. A vaginal sweep was performed. Grafts/Implants Used: None Complications None Admit VTE Documentation VTE Present on Admission: No
[2022-11-22] VITALS (12 sets, daily range): BP systolic 123–159; BP diastolic 74–85; PULSE 61–85; RESP 14–18; TEMP 36.4–37.2; O2SAT 95–97
--- NOTE | 2022-11-22 08:48 | PN.OBGYN_ITS ---
Subjective Subjective She is doing well this morning. She denies headache, vision changes, lightheadedness, dizziness, chest pain, shortness of breath, leg pain. Lochia is normal. She is breast-feeding without complaints. She is having some uterine cramping and has not yet taken ibuprofen for this. Objective Data Objective Data Vital Signs: Vital Signs Temp Pulse Resp BP Pulse Ox O2 Del Method 98.9 F 85 14 128/74 H 96 Room Air 11/22/22 08:00 11/22/22 08:00 11/22/22 08:00 11/22/22 08:00 11/22/22 08:00 11/22/22 08:00 Oxygen Delivery Method Room Air Weight: 134 lb 2 oz Body Mass Index (BMI) 23.7 Intake & Output: Intake and Output for Last 24 Hours 11/20/22 11/21/22 11/22/22 23:59 23:59 23:59 Intake Total 2070.51 / 2070.51 250 / 250 Output Total 400 / 400 500 / 500 Balance 1670.51 / 1670.51 -250 / -250 Lab / Micro Data 11/21/22 07:40 Labs: Laboratory Results - last 24 hr 11/21/22 07:40: Blood Type O POSITIVE, Antibody Screen NEGATIVE Physical Exam Const alert and no apparent distress Constitutional Narrative: Nursing General Appearance: comfortable Assessment & Plan (1) Vaginal delivery: PLAN: Patient is day 1 from a vaginal delivery. She is doing well. Breast-feeding. Routine care. (2) First degree perineal laceration: (3) Gestational hypertension: PLAN: No symptoms of preeclampsia this morning. Continue to monitor blood pr essures . Anticipate discharge tomorrow.
[2022-11-22] MEDS: Ibuprofen 600 MG Tablet PO (12:48)
[2022-11-23 03:04] VITALS: BP 120/67; PULSE 57
[2022-11-23 03:06] VITALS: BP 120/67; PULSE 57; RESP 18
[2022-11-23 07:29] VITALS: BP 136/82; PULSE 64; O2SAT 96
[2022-11-23 07:30] VITALS: BP 136/82; PULSE 70; RESP 14; TEMP 36.4; O2SAT 99
[2022-11-23] MEDS: Ibuprofen 600 MG Tablet PO (07:34)
--- NOTE | 2022-11-23 10:10 | DCINST_ITS ---
Discharge Instructions Diet Discharge Diet: No restrictions Activity Discharge Activity: May Shower May resume sexual activity in: 6 weeks Weight Bearing Status: Weight bearing as tolerated Lifting Restrictions: nothing heavier than baby Dressing / Incision Call your doctor if you observe: Fever of 101 or Higher, Coldness, Increased Pain, Numbness or Tingling, Change in Color, Inability to urinate, Inability to have a bowel movement, Using more than 1 pad per hour, Shortness of breath, Dizziness, Fainting spells, Swelling in the ankles, Chest pain, Increased palpitations (irregular heartbeat), Calf discomfort and Uncontrolled pain Cleanse incision/area with: Soap & Water Follow Up Care Please Follow Up With: Abbi Keller DO When: 6 week Test Results: Test results from this visit will be discussed in further detail at your follow- up appointment, if applicable. Discharge Plan Admission Admit Date/Time: 11/21/22 07:05 Primary Reason for Your Visit: delivery Attending Provider: Nona Cooley Primary Care Provider: Kia Wall Instructions Patient Instructions: After a Vaginal Discharge Orders/Prescriptions Prescriptions: Continued vit,[id number] [Prenatabs FA] 1 TABLET tablet 1 tab PO DAILY Patient Comments: Discontinued magnesium 250 MG tablet 250 mg PO DAILY Referrals / Follow Up: Kia Wall DO [Primary Care Provider] - Disposition Disposition (needs filled in before D/C Order can be placed): Home, Self Care
--- NOTE | 2022-11-23 10:12 | PCM.PN.OB ---
Subjective Subjective Pt is doing well this morning. Ambulating and voiding without difficulty. Tolerating regular diet. She denies lightheadedness, dizziness, chest pain, shortness of breath, leg pain. Lochia is normal. She is breast-feeding. She offers no complaints and desires to go home. Objective Data Objective Data Vital Signs: Vital Signs Temp Pulse Resp BP Pulse Ox O2 Del Method 97.6 F L 70 14 136/82 H 99 Room Air 11/23/22 07:30 11/23/22 07:30 11/23/22 07:30 11/23/22 07:30 11/23/22 07:30 11/23/22 07:30 Oxygen Delivery Method Room Air Weight: 134 lb 2 oz Body Mass Index (BMI) 23.7 Intake & Output: Intake and Output for Last 24 Hours 11/21/22 11/22/22 11/23/22 23:59 23:59 23:59 Intake Total 2070.51 / 2070.51 250 / 250 Output Total 400 / 400 500 / 500 Balance 1670.51 / 1670.51 -250 / -250 Lab / Micro Data 11/21/22 07:40 Physical Exam Const alert and no apparent distress Constitutional Narrative: Up walking around in the room General Appearance: comfortable Assessment & Plan (1) First degree perineal laceration: (2) Vaginal delivery: PLAN: PPD#2 s/p . Doing well and discharge instructions reviewed. (3) Gestational hypertension: PLAN: BP's normotensive. No symptoms of pre e this morning. Discussed call the office tomorrow to come in this week for a BP check.
--- NOTE | 2022-11-23 10:24 | PCM.DC.SUM ---
Providers Date of Admission: 11/21/22 Date of Discharge: 11/23/22 Primary Care Physician: Dr. Kia Wall DO Reason For Visit: LABOR AND DELIVERY Diagnosis Discharge Diagnosis (1) First degree perineal laceration: Status: Acute Code(s): O70.0 - First degree perineal laceration during delivery (2) Vaginal delivery: Status: Acute Code(s): O80 - Encounter for full-term uncomplicated delivery Plan: PPD#2 s/p . Doing well and discharge instructions reviewed. (3) Gestational hypertension: Status: Acute Code(s): O13.9 - Gestational [-induced] hypertension without significant proteinuria, unspecified trimester Plan: BP's normotensive. No symptoms of pre e this morning. Discussed call the office tomorrow to come in this week for a BP check. Medications at Discharge Home Medications vits,calcium no.78-iron fumarate-folic acid 29 mg-1 mg tablet (Prenatabs FA) 1 tab PO DAILY vitamin 05/21/13 Hospital Course Summary of Care Provided Hospital Course: Presented for a scheduled induction of labor for AMA and gestational hypertension at 39 weeks. Pre e labs WNL. She had a spontaneous vaginal delivery. Blood pressures remain normotensive with an occasional mild range blood pressure. No symptoms of preeclampsia. See operative report for details. She was discharged home in good condition with follow-up in the office. Weight / BMI Weight Weight: 134 lb 2 oz Body Mass Index (BMI) 23.7 ABG / Lab / Microbiology Data 11/21/22 07:40 D/C Instructions Discharge Diet: No restrictions May resume sexual activity in: 6 weeks Weight Bearing Status: Weight bearing as tolerated Call your doctor if you observe: Fever of 101 or Higher, Coldness, Increased Pain, Numbness or Tingling, Change in Color, Inability to urinate, Inability to have a bowel movement, Using more than 1 pad per hour, Shortness of breath, Dizziness, Fainting spells, Swelling in the ankles, Chest pain, Increased palpitations (irregular heartbeat), Calf discomfort and Uncontrolled pain Cleanse incision/area with: Soap & Water Please Follow Up With: Abbi Keller DO When: 6 week Meaningful Use Info Meaningful Use Diagnoses (Choose all that apply): None applicable Discharge Plan Admission Admit Date/Time: 07/21/23 07:05 Primary Reason for Your Visit: delivery Attending Provider: Nona Cooley Primary Care Provider: Kia Wall Instructions Patient Instructions: After a Vaginal Discharge Orders/Prescriptions Prescriptions: Continued vit,[id number] [Prenatabs FA] 1 TABLET tablet 1 tab PO DAILY Patient Comments: Discontinued magnesium 250 MG tablet 250 mg PO DAILY Referrals / Follow Up: Kia Wall DO [Primary Care Provider] - Disposition Disposition (needs filled in before D/C Order can be placed): Home, Self Care
== END 2022-11-23 10:40 | disposition home or self-care (01) | DRG 807 ==
PROVIDERS: Admitting Provider Obstetrics & Gynecology; PCP Family Medicine; Referring Provider Obstetrics & Gynecology; Visit Provider Obstetrics & Gynecology
DX: O13.4 Gestational [pregnancy-induced] hypertension without significant proteinuria, complicating childbirth (principal); Z37.0 Single live birth; O26.23 Pregnancy care for patient with recurrent pregnancy loss, third trimester; B95.1 Streptococcus, group B, as the cause of diseases classified elsewhere; O70.0 First degree perineal laceration during delivery; O99.824 Streptococcus B carrier state complicating childbirth; Z3A.39 39 weeks gestation of pregnancy; Z64.1 Problems related to multiparity
CPT/HCPCS: 59025; 59050; 85025; 86780; 86850; 86900; 86901; 99221; J7030; J7120; G0378

== ENCOUNTER → 2023-07-27 | Outpatient (CLI) | payer OTHER, SELFPAY ==
[2023-07-27 10:41] LABS: Absolute Lymphocyte Count 2.23 X10^3/uL (0.83-4.51); Basophil# 0.05 X10^3/uL; Basophil% 0.9 % (0-1); Eosinophil# 0.11 X10^3/uL; Eosinophils% 1.9 % (0-5); Erythrocyte Sedimentation Rate 11 mm/hr (0-30); Hematocrit 37.9 % (37-47); Hemoglobin 12.3 g/dL (12.0-15.0); Lymphocyte # 2.23 X10^3/ul (0.83-4.51); Mean Corp Hgb Conc 32.5 g/dL (32-36); Mean Corpuscular Hgb 30.4 pg (27.0-32.0); Mean Corpuscular Volume 93.6 fL (81-99); Mean Platelet Vol. 11.3 fl (6.2-12.0); Monocyte% 8.5 % (0-10); NRBC Flagged by Analyzer 0 % (0-5); Neutrophil # 2.97 X10^3/uL (2.7-7.7); Neutrophil % 50.5 % (47-70); Platelet Count 258 K/mm3 (150-450); RBC Distribution Width CV 12.3 % (11.6-14.6); RBC Distribution Width SD 42.5 fl (35.1-43.9); Red Blood Count 4.05 M/mm3 (4.2-5.4); White Blood Count 5.9 K/mm3 (4.4-11.0)
[2023-07-27 12:21] LABS: AST(SGOT) 24 U/L (15-37); Alanine Aminotransfer ALT/SGPT 30 U/L (13-56); Albumin, Serum 3.9 g/dL (3.2-5.0); Alkaline Phosphatase 108 U/L (45-117); Anion Gap 6 (5-15); BUN 12 mg/dL (7-18); BUN/Creat Ratio 17.5 RATIO (10-20); CRP < 2.90 mg/L (0.0-3.0); Calcium,Total 8.6 mg/dL (8.5-10.1); Chloride 105 mmol/L (98-107); Creatinine, Serum 0.68 mg/dL (0.55-1.02); EST Glomerular Filtration Rate 101 mL/min (>60); Est Glom Filt Rate - Afr Amer 122 mL/min (>60); Free T3 2.8 pg/mL (2.18-3.98); Globulin 3.9 g/dL (2.2-4.2); Glucose 100 mg/dL (74-106); Potassium 3.8 mmol/L (3.5-5.1); Protein, Total 7.8 g/dL (6.4-8.2); Rheumatoid Factor < 10.0 IU/mL (<15); Sodium Level 138 mmol/L (136-145); T4 Free Direct 0.76 ng/dL (0.76-1.46); Thyroid Stim Hormone (TSH) 4.25 uIU/mL (0.358-3.74)
[2023-07-28 12:09] LABS: ANTINUCLEAR ANTIBODIES DIRECT Negative (Negative)
[2023-07-28 14:10] LABS: CCP IgG Antibodies 4 units (0-19)
== END | disposition home or self-care (01) ==
LOC: MTLAB 09:00
PROVIDERS: PCP Family Medicine; Referring Provider Family Medicine; Visit Provider Family Medicine
DX: E03.9 Hypothyroidism, unspecified (principal); M79.10 Myalgia, unspecified site; M25.50 Pain in unspecified joint; R19.7 Diarrhea, unspecified
CPT/HCPCS: 36415; 80053; 84439; 84443; 84481; 85025; 85652; 86038; 86140; 86200; 86225; 86235; 86431

== ENCOUNTER → 2023-11-18 | Outpatient (CLI) | payer OTHER, SELFPAY ==
[2023-11-18 12:43] LABS: Free T3 2.6 pg/mL (2.18-3.98); T4 Free Direct 0.73 ng/dL (0.76-1.46); Thyroid Stim Hormone (TSH) 4.32 uIU/mL (0.358-3.74)
[2023-11-19 16:10] LABS: Thyroglobulin Antibody 11.5 IU/mL (0.0-0.9); Thyroid Peroxidase AB > 600 IU/mL (0-34)
== END | disposition home or self-care (01) ==
PROVIDERS: PCP Family Medicine; Referring Provider Family Medicine; Visit Provider Family Medicine
DX: E03.9 Hypothyroidism, unspecified (principal)
CPT/HCPCS: 36415; 84439; 84443; 84481; 86376; 86800

== ENCOUNTER → 2024-02-19 | Outpatient (CLI) | payer OTHER, SELFPAY ==
--- OUTSIDE RECORDS SUMMARY | 2024-02-19 09:31 | XMS RPT_ITS | CCD ---
Author Organization [facility] Informcounts include 234 beds at the [facility] Partnership [facility] Care Team Providers Care Quality Control Industrial Engineer Name Role Phone Kia Wall DO Primary Care Provider WERNER MURRAY Attending Unavailable KIA WALL Primary Care Unavailable Medications Current Medications Medication Drug Class(es) Dates Sig (Normalized) Sig (Original) levothyroxine sodium 0.025 mg oral tablet (1 source) l-Thyroxine Start: 12-28-2023 take 1 tablet by mouth once daily in the morning SYNTHROID 25 mcg tablet Take 25 mcg by mouth every morning. Take on an empty stomach. 12/28/2023 Active prental multivitamin 27 mg iron- 800 mcg tablet (20 sources) take 1 tablet by mouth once daily prental multivitamin 27 mg iron- 800 mcg tablet Take 1 tablet by mouth once daily. Active take 1 tablet by mouth once alyssa y prental multivitamin 27 mg iron- 800 mcg tablet Take 1 tablet by mouth once daily. 0 Active Comment on above: Take 1 tablet by dajuan th once daily. Completed/Discontinued Medications Medication Drug Class(es) Dates Sig (Normalized) Sig (Original) Ascorbic Acid (1 source) Vitamin C End: 05-02-2022 ascorbic acid (VITAMIN C ORAL) Take by mouth. 0 05/02/2022 Discontinued Comment on above: Take by mouth. Problems Active Problems Problem Classification Problem Date Documented Da te Episodic/Chronic Hypertension complicating ; childbirth and the puerperium (1 source) Elevated blood pressure; Translations: [Unspecified maternal hypertension, third trimester] 11-20-2022 Chronic Other complications of (5 sources) High risk ; Translations: [Supervision of with grand multiparity, first trimester] Episodic Other screening for suspected conditions (not mental disorders or infectious disease) (4 sources) Patient encounter status; Translations: [Encounter for screening, unspecified] Onset: 01-11-2024 Episodic Residual codes; unclassified (1 source) Gestation period, 11 weeks; Translations: [11 weeks gestation of ] Episodic Residual codes; unclassified (1 source) Gestation period, 15 weeks; Translations: [15 weeks gestation of ] Episodic Residual codes; unclassified (1 source) Gestation period, 19 weeks; Translations: [19 weeks gestation of ] Episodic Residual codes; unclassified (1 source) Gestation period, 24 weeks; Translations: [24 weeks gestation of ] Episodic Residual codes; unclassified (1 source) Gestation period, 28 weeks; Translations: [28 weeks gestation of ] Episodic Residual codes; unclassified (1 source) Gestation period, 32 weeks; Translations: [32 weeks gestation of ] Episodic Residual codes; unclassified (1 source) Gestation period, 34 weeks; Translations: [34 weeks gestation of ] Episodic Residual codes; unclassified (2 sources) Gestation period, 37 weeks; Translations: [37 weeks gestation of ] Episodic Residual codes; unclassified (1 source) Gestation period, 39 weeks; Translations: [39 weeks gestation of ] 11-20-2022 Episodic Thyroid disorders (20 sources) Subclinical hyperthyroidism; Translations: [Thyrotoxicosis, unspecified without thyrotoxic crisis or storm] Onset: 04-02-2011 Resolved: 10-27-2012 05-02-2022 Chronic Past or Other Problems Problem Classification Problem Date Documented Date Episodic/Chronic Bacterial infection; unspecified site (7 sources) Bacteria present; Translations: [Streptococcus, group B, as the cause of diseases classified elsewhere] Onset: 10-31-2022 Resolved: 01-08-2023 10-31-2022 Episodic Diabetes or abnormal glucose tolerance complicating ; childbirth; or the puerperium (1 source) Abnormal glucose level; Translations: [Abnormal glucose complicating ] Onset: 03-01-2013 Resolved: 06-30-2013 04-29-2021 Episodic Heart valve disorders (1 source) Mitral valve prolapse; Translations: [Nonrheumatic mitral (valve) prolapse] Onset: 10-25-2012 Resolved: 06-30-2013 04-29-2021 Chronic Immunizations and screening for infectious disease (2 sources) Vaccination needed; Translations: [Encounter for immunization] Onset: 10-12-2017 Resolved: 12-10-2017 Episodic Other circulatory disease (1 source) H/O: heart disorder; Translations: [Personal history of other diseases of the circulatory system] Onset: 03-19-2017 Resolved: 12-10-2017 12-10-2017 Episodic Other complications of (20 sources) Multigravida of advanced maternal age; Translations: [Supervision of elderly multigravida, first trimester] Onset: 05-02-2022 Resolved: 01-08-2023 Episodic Other complications of (20 sources) Supervision of with other poor reproductive or obstetric history, unspecified trimester; Translations: [ with other poor obstetric history] Onset: 10-25-2012 Resolved: 01-08-2023 05-02-2022 Episodic Other complications of (19 sources) Maternal drug exposure; Translations: [Supervision of other high risk pregnancies, first trimester] Onset: 05-02-2022 Resolved: 01-08-2023 05-02-2022 Episodic Other complications of (2 sources) Hyperthyroidism in ; Translations: [Endocrine, nutritional and metabolic diseases complicating , unspecified trimester] Onset: 11-27-2010 Resolved: 07-22-2019 03-21-2011 Episodic Other complications of (1 source) condition affecting obstetrical care of mother; Translations: [Maternal care for abnormalities of the heart rate or rhythm, unspecified trimester, not applicable or unspecified] Onset: 01-29-2011 Resolved: 03-21-2011 03-21-2011 Episodic Other complications of (1 source) H/O: miscarriage; Translations: [Supervision of with other poor reproductive or obstetric history, unspecified trimester] Onset: 10-25-2012 Resolved: 04-13-2013 04-29-2021 Episodic Other complications of (1 source) Thyroid disease in ; Translations: [Endocrine, nutritional and metabolic diseases complicating , unspecified trimester] Onset: 10-27-2012 Resolved: 07-06-2013 07-06-2013 Episodic Other nutritional; endocrine; and metabolic disorders (19 sources) Underweight; Translations: [Underweight] Onset: 01-29-2015 Resolved: 01-08-2023 01-29-2015 Episodic Other and delivery including normal (6 sources) with uncertain dates; Translations: [Encounter for supervision of normal , unspecified, first trimester] Onset: 09-05-2010 Resolved: 06-30-2013 Episodic Residual codes; unclassified (20 sources) History of placental abruption; Translations: [Personal history of other complications of , childbirth and the puerperium] Onset: 05-02-2022 Resolved: 01-08-2023 05-02-2022 Episodic Residual codes; unclassified (19 sources) FH: Congenital anomaly; Translations: [Family history of other congenital malformations, deformations and chromosomal abnormalities] Onset: 05-02-2022 Resolved: 01-08-2023 05-02-2022 Episodic Residual codes; unclassified (1 source) History of previous intrauterine growth restricted ; Translations: [Personal history of other complications of , childbirth and the puerperium] Onset: 03-19-2017 Resolved: 12-10-2017 12-10-2017 Episodic Residual codes; unclassified (1 source) Family history of Spina bifida; Translations: [Family history of other congenital malformations, deformations and chromosomal abnormalities] Onset: 03-19-2017 Resolved: 12-10-2017 12-10-2017 Episodic Residual codes; unclassified (1 source) Other specified health status; Translations: [Other specified conditions influencing health status] Onset: 03-19-2017 Resolved: 12-10-2017 12-10-2017 Episodic Results Test Name Value Interpretation Reference Range Facil simona ARROYOon 01-11-2024 CNOV Office Visit (OBGYWM ) LIZY LEARY ([id number]) 1985 F BMD Date Time Provider Department 01/11/24 4:00 PM WERNER MURRAY OBGYWM During your visit today, we recorded the following information about you: Blood pressure Weight Height Last Period 124/74 54.4 kg 1.626 m 12/31/23 Werner Murray MD 01/11/2024 4:31 PM Signed Lizy is a 39 year old who presents for an annual gynecologic exam without complaints. Menses: cycles every 28-30 days and 4 days of flow. 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 She denies any asthma attacks since age 5. Dorota CONWAY RN 10/25/2012: Family history of defects Comment: 10/25/2012Jared's aunt was born with spina bifida. She at age 11 months. She has a 2nd cousin with autism. Dorota CONWAY RN No date: Hyperthyroidism 10/27/2012: Hyperthyroidism in , antepartum Comment: No proven Graves disease when not . 10/27/2012: Hyperthyroidism in , antepartum Comment: No proven hyperthyroidism when not . No date: Mitral valve disorders(424.0) Comment: Mitral valve disorder No date: Other acne No date: Placental abruptionPAST SURGICAL HISTORY No date: TONSILLECTOMY PRIMARY/SECONDARY Comment: Tonsillectomy FAMILY HISTORY Problem Relation Age of Onset Hyperlipidemia Mother other (aplastic anemia) Mother 67 bone marrow transplant Diabetes Mother Blood Clots Mother Hypertension Father Lipids Father No Known Problems Sister Arthritis Maternal Grandmother Stroke Maternal Grandmother Heart Maternal Grandfather Aneurysm Maternal Grandfather ABDOMINAL ANEURYSM Osteoporosis Paternal Grandmother Cancer Paternal Grandmother No Known Problems Daughter No Known Problems Daughter No Known Problems Son Breast Cancer Paternal Aunt SOCIAL HISTORY Social History Tobacco Use Smoking status: Never Smokeless tobacco: Never Vaping Use Vaping status: Never Used Substance Use Topics Alcohol use: Not Currently Comment: rarely Drug use: No REVIEW OF SYSTEMS Abdomen: No abdominal pain, nausea, vomiting, diarrhea, or constipation. No bloating, early satiety, indigestion, or increased flatulence. Bladder: No dysuria, gross hematuria, urinary frequency, urinary urgency, or incontinence. Breast: No breast lumps, nipple d/c, overlying skin changes, redness or skin retraction. Allergies and current medication updated:Yes EXAM: BP 124/74 Ht 5' 4 (1.63m) Wt 120 lb (54.4kg) LMP 12/31/2023 BMI 20.59 kg/(m2). GENERAL: pleasant, female in no apparent distress HEENT: Normocephalic, atraumatic, mucus membranes moist, and no lesions NECK: Supple, full range of motion, no adenopathy, and thyroid normal DERMATOLOGY: Normal, without lesions, non-icteric, and non-hirsute BREAST: soft, non-tender, symmetric, no dominant mass, normal nipple-areolar complex, no lymphadenopathy, and no nipple discharge CHEST: Normal inspiratory effort ABDOMEN: soft, non-tender, and no masses PELVIC: external genitalia normal, normal Bartholin's glands, urethra, Pritchett's glands, no vulvar lesions, no cervical lesions, good vaginal support, physiologic discharge present, normal appearing perineal body and perianal region BIMANUAL: uterus normal size, shape and consistency, no adnexal masses, and non-tender RECTOVAGINAL: deferred. NEURO: alert and oriented x3,exam grossly non-focal EXTREMITIES: normal ASSESSMENT/PLAN: 1) Health maintenance: Pap/HPV up to date. Mammogram up to date . 2) Contraception: vasectomy. Contraceptive options reviewed and information provided. 3) STD screening: Declined STD check. 4) Follow up one year or sooner as needed Werner Murray MD Allergies As of Date: 01/11/2024 (No Known Allergies) Date Reviewed: 01/11/2024 Reviewed by: Werner Murray MD - Fully Assessed Reason for Visit: Yearly Exam [187] Primary Visit Diagnosis:Encounter for gynecological examination (general) (routine) without abnormal findings [Z01.419] Other Visit Diagnosis:Encounter for screening mammogram for breast cancer [Z12.31] Order(s):RAYMUNDO SCREENING W MARIO ALBERTO [[id number]] Order #: [id number] FUTURE Prescriptions as of 01/11/2024 - SYNTHROID 25 mcg tablet Take 25 mcg by mouth every morning. Take on an empty stomach. - p (more content not included)... Normal [facility] OB DIP B/Oon 3 Glucose Ql (U) Negative Neg mg/dL [facility] Protein.monoclona l (U) [Mass/Vol] Negative Neg mg/dL [facility] URINE OB DIP B/Oon 3 Glucose Ql (U) Negative Neg mg/dL [facility] Protein.monoclona l (U) [Mass/Vol] Negative Neg mg/dL [facility] URINE OB DIP B/Oon 3 Glucose Ql (U) Negative Neg mg/dL [facility] Protein.monoclona l (U) [Mass/Vol] Negative Neg mg/dL [facility] URINE OB DIP B/Oon 3 Glucose Ql (U) Negative Neg mg/dL [facility] Protein.monoclona l (U) [Mass/Vol] Negative Neg mg/dL [facility] URINE OB DIP B/Oon 3 Glucose Ql (U) Negative Neg mg/dL [facility] Protein.monoclona l (U) [Mass/Vol] Negative Neg mg/dL [facility] URINE OB DIP B/Oon 3 Glucose Ql (U) Negative Neg mg/dL [facility] Protein.monoclona l (U) [Mass/Vol] Negative Neg mg/dL [facility] URINE OB DIP B/Oon 3 Glucose Ql (U) Negative Neg mg/dL [facility] Protein.monoclona l (U) [Mass/Vol] Negative Neg mg/dL [facility] OBSTETRIC ULTRASOUND WHIon 0 05-13-2022 [facility] Vital Signs Date Time Vital Sign Value Performing Clinician Faci mannyy 01-11-2024 15:47-0400 Body height 162.6 cm Werner Murray MD Work Phone: [facility] 01-11-2024 15:47-0400 Body mass index (BMI) [Ratio] 20.6 kg/m2 Werner Murray MD Work Phone: [facility] 01-11-2024 15:47-0400 Body weight 54.43 kg Werner Murray MD Work Phone: [facility] 01-11-2024 15:47-0400 Diastolic blood pressure 74 mm[Hg] Werner Murray MD Work Phone: [facility] 01-11-2024 15:47-0400 Systolic blood pressure 124 mm[Hg] Werner Murray MD Work Phone: [facility] 01-08-2023 13:31-0400 Body height 161.3 cm Werner Murray MD Work Phone: [facility] 01-08-2023 13:31-0400 Body weight 54.43 kg Werner Murray MD Work Phone: [facility] 01-08-2023 13:31-0400 Diastolic blood pressure 64 mm[Hg] Werner Murray MD Work Phone: [facility] 01-08-2023 13:31-0400 Systolic blood pressure 118 mm[Hg] Werner Murray MD Work Phone: [facility] 11-20-2022 11:01-0400 Body weight 60.42 kg Emily Melara MD Work Phone: [facility] 11-20-2022 11:01-0400 Diastolic blood pressure 82 mm[Hg] Emily Melara MD Work Phone: [facility] 11-20-2022 11:01-0400 Systolic blood pressure 149 mm[Hg] Emily Melara MD Work Phone: [facility] 11-11-2022 10:41-0400 Body weight 60.33 kg Werner Murray MD Work Phone: [facility] 11-11-2022 10:41-0400 Diastolic blood pressure 74 mm[Hg] Werner Murray MD Work Phone: [facility] 11-11-2022 10:41-0400 Systolic blood pressure 134 mm[Hg] Werner Murray MD Work Phone: [facility] 11-06-2022 08:19-0400 Body weight 61.24 kg Nancy Lopez APRN.CNM Work Phone: [facility] 11-06-2022 08:19-0400 Diastolic blood pressure 64 mm[Hg] Nancy Lopez OPTICAL SCIENTIST.CNM Work Phone: [facility] 11-06-2022 08:19-0400 Systolic blood pressure 112 mm[Hg] Nancy Lopez OPTICAL SCIENTIST.CNM Work Phone: [facility] 10-15-2022 11:21-0400 Body weight 58.97 kg Werner Murray MD Work Phone: [facility] 10-15-2022 11:21-0400 Diastolic blood pressure 74 mm[Hg] Werner Murray MD Work Phone: [facility] 10-15-2022 11:21-0400 Systolic blood pressure 110 mm[Hg] Werner Murray MD Work Phone: [facility] 10-01-2022 11:08-0400 Body weight 57.61 kg Werner Murray MD Work Phone: [facility] 10-01-2022 11:08-0400 Diastolic blood pressure 72 mm[Hg] Werner Murray MD Work Phone: [facility] 10-01-2022 11:08-0400 Systolic blood pressure 116 mm[Hg] Werner Murray MD Work Phone: [facility] 09-03-2022 11:08-0400 Body weight 58.97 kg Werner Murray MD Work Phone: [facility] 09-03-2022 11:08-0400 Diastolic blood pressure 68 mm[Hg] Werner Murray MD Work Phone: [facility] 09-03-2022 11:08-0400 Systolic blood pressure 114 mm[Hg] Werner Murray MD Work Phone: [facility] 08-08-2022 10:55-0400 Body weight 56.7 kg Werner Murray MD Work Phone: [facility] 08-08-2022 10:55-0400 Diastolic blood pressure 70 mm[Hg] Werner Murray MD Work Phone: [facility] 08-08-2022 10:55-0400 Systolic blood pressure 118 mm[Hg] Werner Murray MD Work Phone: [facility] 07-07-2022 16:03-0500 Body weight 54.88 kg Werner Murray MD Work Phone: [facility] 07-07-2022 16:03-0500 Diastolic blood pressure 72 mm[Hg] Werner Murray MD Work Phone: [facility] 07-07-2022 16:03-0500 Systolic blood pressure 118 mm[Hg] Wrener Murray MD Work Phone: [facility] 06-10-2022 16:15-0500 Body weight 52.16 kg Werner Murray MD Work Phone: [facility] 06-10-2022 16:15-0500 Diastolic blood pressure 62 mm[Hg] Werner Murray MD Work Phone: [facility] 06-10-2022 16:15-0500 Systolic blood pressure 102 mm[Hg] Werner Murray MD Work Phone: [facility] 05-13-2022 09:21-0500 Body height 161.3 cm Werner Murray MD Work Phone: [facility] 05-13-2022 09:21-0500 Body weight 51.26 kg Werner Murray MD Work Phone: [facility] 05-13-2022 09:21-0500 Diastolic blood pressure 70 mm[Hg] Werner Murray MD Work Phone: [facility] 05-13-2022 09:21-0500 Systolic blood pressure 112 mm[Hg] Werner Murray MD Work Phone: [facility] Encounters Encounter Date Encounter Type Care Provider Facility Start: 01-11-2024 End: 01-11-2024 Patient encounter procedure Werner Murray MD Work Phone: OB/Gynecology Comment on above: Encounter for gyneco logical examination (general) (routine) without abnormal findings (Primary Dx); Encounter for screening mammogram for breast cancer Start: 01-11-2024 End: 01-11-2024 Patient encounter status Werner Murray MD Work Phone: [facility] Start: 01-11-2024 End: 01-11-2024 ambulatory WERNER MURRAY Facility:[facility] Start: 01-11-2024 Encounter for gynecological examination (general) (routine) without abnormal findings WERNER MURRAY [facility] Start: 01-08-2023 End: 01-08-2023 Patient encounter procedure Werner Murray MD Work Phone: OB/Gynecology Comment on above: care and examination (Primary Dx) Start: 11-27-2022 Telephone encounter Abbi siddiqui MD Work Phone: OB/Gynecology Comment on above: FMLA Paperwork (/) Start: 11-24-2022 ambulatory Abbi Turner Work Phone: OB/Gynecology Comment on above: Ob Delivery Note Start: 11-20-2022 End: 11-20-2022 Patient encounter procedure Emily Melara MD Work Phone: OB/Gynecology Comment on above: AMA (advanced matern al age) multigravida 35+, third trimester (Primary Dx); High-risk in third trimester; History of placenta abruption; Positive GBS test; Elevated blood pressure affecting in third trimester, antepartum; 39 weeks gestation of Start: 11-11-2022 End: 11-11-2022 Patient encounter procedure Werner Murray MD Work Phone: OB/Gynecology Comment on above: AMA (advanced matern al age) multigravida 35+, third trimester (Primary Dx); 37 weeks gestation of ; High-risk in third trimester Start: 11-06-2022 End: 11-06-2022 Patient encounter procedure Nancy Lopez APRN.CNM Work Phone: OB/Gynecology Comment on above: 37 weeks gestation o f (Primary Dx) Start: 10-15-2022 End: 10-15-2022 Patient encounter procedure Werner Murray MD Work Phone: OB/Gynecology Comment on above: Need for vaccination (Primary Dx); 34 weeks gestation of ; AMA (advanced maternal age) multigravida 35+, third trimester Start: 10-01-2022 End: 10-01-2022 Patient encounter procedure Werner Murray MD Work Phone: OB/Gynecology Comment on above: 32 weeks gestation o f (Primary Dx); IUGR (intrauterine growth restriction) in prior , ; AMA (advanced maternal age) multigravida 35+, third trimester Start: 09-03-2022 End: 09-03-2022 Patient encounter procedure Werner Murray MD Work Phone: OB/Gynecology Comment on above: 28 weeks gestation o f (Primary Dx) Start: 08-27-2022 Telephone encounter Werner Murray MD Work Phone: OB/Gynecology Comment on above: Results Start: 08-26-2022 Telephone encounter Werner Murray MD Work Phone: OB/Gynecology Comment on above: Results Start: 08-08-2022 End: 08-08-2022 Patient encounter procedure Werner Murray MD Work Phone: OB/Gynecology Comment on above: AMA (advanced matern al age) multigravida 35+, second trimester (Primary Dx); 24 weeks gestation of Start: 07-07-2022 End: 07-07-2022 Patient encounter procedure Werner Murray MD Work Phone: OB/Gynecology Comment on above: 19 weeks gestation o f (Primary Dx); AMA (advanced maternal age) multigravida 35+, second trimester Start: 06-10-2022 End: 06-10-2022 Patient encounter procedure Werner Murray MD Work Phone: OB/Gynecology Comment on above: 15 weeks gestation o f (Primary Dx); AMA (advanced maternal age) multigravida 35+, second trimester Start: 06-02-2022 Telephone encounter Werner Murray MD Work Phone: OB/Gynecology Comment on above: Results (Elizabeth ashby) Start: 05-13-2022 Telephone encounter Werner Murray MD Work Phone: OB/Gynecology Comment on above: Outside Testing Start: 05-13-2022 End: 05-13-2022 Patient encounter procedure Werner Murray MD Work Phone: OB/Gynecology Comment on above: with uncer tain date of last menstrual period in first trimester, antepartum (Primary Dx); High risk multigravida in first trimester; Advanced maternal age in multigravida, first trimester Encounter for (NT) n uchal translucency scan (Primary Dx); with uncertain date of last menstrual period in first trimester, antepartum; High risk multigravida in first trimester; 11 weeks gestation of Start: 05-02-2022 Telephone encounter Werner Murray MD Work Phone: OB/Gynecology Comment on above: Care Start: 03-19-2017 End: 12-10-2017 Patient requested procedure Werner Murray MD Work Phone: [facility] Procedures Date Procedure Procedure Detail Performing Clinician Start: 11-20-2022 URINE OB DIP B/O Nicolas Hong MD Work Phone: Start: 11-11-2022 URINE OB DIP B/O Yasmin Murray MD Work Phone: Start: 10-15-2022 URINE OB DIP B/O Yasmin Murray MD Work Phone: Start: 10-01-2022 URINE OB DIP B/O Yasmin Murray MD Work Phone: Start: 09-03-2022 URINE OB DIP B/O Yasmin Murray MD Work Phone: Start: 07-07-2022 URINE OB DIP B/O Yasmin Murray MD Work Phone: Start: 06-10-2022 URINE OB DIP B/O Yasmin Murray MD Work Phone: Start: 05-13-2022 Us preg uterus after 1st trimest 05/04 gestation Werner Murray MD Work Phone: Plan of Treatment Date Care Activity Detail Author Start: 10-15-2032 Urine microalbumin profile [facility] Start: 05-01-2025 HPV TESTING HPV TESTING [facility] Start: 05-01-2025 PAP TESTING PAP TESTING [facility] Start: 05-01-2025 Screening for malign ant neoplasm of cervix Cervical Cancer Screening [facility] Start: 2024 Covid-19 Vaccine () Covid-19 Vaccine () [facility] Start: 2024 Influenza vaccination Influenza Vacc ine (#1) [facility] Start: 03-16-2023 Urine microalbumin profile DTAP,TDAP,TD (3 - Td or Tdap) [facility] Start: 2023 Mammography MAMMOGRAM [facility] Start: 2023 Screening for malign ant neoplasm of breast Mammogram Screening [facility] Start: 01-02-2023 Influenza vaccination C [facility] Start: 06-10-2022 End: 08-10-2022 ALPHA FETOPRO MATERNAL ALPHA FETOPRO MATERNAL Lab Routine 15 weeks gestation of AMA (advanced maternal age) multigravida 35+, second trimester Expected: 06/10/2022, Expires: 08/10/2022 [facility] Work Phone: Comment on above: Expected: 06/10/2022 , Expires: 08/10/2022 Start: 06-10-2022 End: 06-10-2023 OBSTETRIC ULTRASOUND [facility] OBSTETRIC ULTRASOUND [facility] Anc Imaging Routine 15 weeks gestation of AMA (advanced maternal age) multigravida 35+, second trimester Expected: 06/10/2022, Expires: 06/10/2023 [facility] Work Phone: Comment on above: Expected: 06/10/2022 , Expires: 06/10/2023 Start: 05-04-2022 DEPRESSION ASSESSMENT DEPRESSION ASS ESSMENT [facility] Start: 05-02-2022 End: 07-02-2022 Chromosome 21 trisomy [Presence] in Blood or Tissue by Cytogenetics [id number] PLUS Lab Routine High risk multigravida in first trimester Encounter for screening of mother Advanced maternal age in multigravida, first trimester Expected: 05/02/2022, Expires: 07/02/2022 [facility] Work Phone: Comment on above: Expected: 05/02/2022 , Expires: 07/02/2022 Start: 05-02-2022 End: 05-02-2023 OBSTETRIC ULTRASOUND WHI OBSTETRIC ULTRASOUND WHI Anc Imaging Routine with uncertain date of last menstrual period in first trimester, antepartum High risk multigravida in first trimester Expected: 05/02/2022, Expires: 05/02/2023 [facility] Work Phone: Comment on above: Expected: 05/02/2022 , Expires: 05/02/2023 Start: 01-02-2022 Influenza vaccination INFLUENZA (#1) [facility] Start: 2002 Hepatitis B Vaccine (1 of 3 - 19+ 3-dose series) Hepatitis B Vaccine (1 of 3 - 19+ 3-dose series) [facility] Start: 2001 ANNUAL 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 ANTONETTE DISEASE VISIT ANNUAL PCP TEAM CHRONIC DISEASE VISIT [facility] Start: 2001 Anxiety Screening Anxiety Screening [facility] Start: 2001 Depression Screening Depression Scre ening [facility] Start: 2001 HEPATITIS C SCREENING HEPATITIS C SC LUPE [facility] Start: 1983 COVID-19 VACCINE (#1) COVID-19 VACCI NE (#1) [facility] Start: 1983 HEPATITIS B (1 of 3 - 3-dose series) HEPATITIS B (1 of 3 - 3-dose series) [facility] Bacteria identified in Urine by Culture URINE CULTURE Microbiology Routine with uncertain date of last menstrual period in first trimester, antepartum High risk multigravida in first trimester Advanced maternal age in multigravida, first trimester 05/13/2022 10:01 AM AMPARO [facility] Work Phone: Chlamydia trachomatis+Neisseria gonorrhoeae DNA [Presence] in Unspecified specimen by AUDELIA with probe detection GC/CHLAMYDIA DNA DET Lab Routine with uncertain date of last menstrual period in first trimester, antepartum High risk multigravida in first trimester Advanced maternal age in multigravida, first trimester 05/13/2022 10:01 AM EST [facility] Work Phone: End: 02-09-2025 DBT Breast - bilateral screening RAYMUNDO SCREENING W MARIO ALBERTO Radiology Routine Encounter for gynecological examination (general) (routine) without abnormal findings Encounter for screening mammogram for breast cancer 1 Occurrences starting 01/11/2024 until 02/09/2025 [facility] Work Phone: Comment on above: 1 Occurrences starti ng 01/11/2024 until 02/09/2025 End: 12-02-2022 nonstress test NON-STRESS TEST Procedures Routine AMA (advanced maternal age) multigravida 35+, third trimester High-risk in third trimester Once per week for 2 Occurrences starting 11/11/2022 until 12/02/2022 [facility] Work Phone: Comment on above: Once per week for 2 Occurrences starting 11/11/2022 until 12/02/2022 URINE OB DIP B/O URINE OB DIP B/ O Lab Routine AMA (advanced maternal age) multigravida 35+, second trimester 24 weeks gestation of Ordered: 08/08/2022 [facility] Work Phone: Comment on above: Ordered: 08/08/2022 URINE OB DIP B/O URINE OB DIP B/ O Lab Routine 37 weeks gestation of Ordered: 11/06/2022 [facility] Work Phone: Comment on above: Ordered: 11/06/2022 [facility] Immunizations Immunization Date Immunization Notes Care Provider Tonny norton 10-15-2022 tetanus toxoid, redu sandie diphtheria toxoid, and acellular pertussis vaccine, adsorbed Werner Murray MD Work Phone: [facility] 03-13-2021 influenza, seasonal, injectable, preservative free Werner Murray MD Work Phone: [facility] 03-13-2021 influenza virus vaccine, unspecified formulation Werner Murray MD Work Phone: [facility] 03-12-2020 influenza, seasonal, injectable Werner Murray MD Work Phone: [facility] 02-16-2019 influenza, seasonal, injectable Werner Murray MD Work Phone: [facility] 02-10-2018 influenza, seasonal, injectable Werner Murray MD Work Phone: [facility] 01-28-2017 influenza, seasonal, injectable Werner Murray MD Work Phone: [facility] 03-06-2016 influenza, seasonal, injectable Werner Murray MD Work Phone: [facility] 03-19-2015 influenza, seasonal, injectable Werner Murray MD Work Phone: [facility] 02-09-2014 influenza, seasonal, injectable Werner Murray MD Work Phone: [facility] 03-16-2013 tetanus toxoid, redu sandie diphtheria toxoid, and acellular pertussis vaccine, adsorbed Werner Murray MD Work Phone: [facility] 02-01-2013 influenza, seasonal, injectable Werner Murray MD Work Phone: [facility] 02-23-2012 diphtheria, tetanus toxoids and acellular pertussis vaccine Werner uMrray MD Work Phone: [facility] 02-26-2009 novel [id number], preservative-free, injectable Werner Murray MD Work Phone: [facility] 06-02-2008 tetanus and diphther ia toxoids, adsorbed, preservative free, for adult use (2 Lf of tetanus toxoid and 2 Lf of diphtheria toxoid) Werner Murray MD Work Phone: [facility] Work Phone: Payers Date Payer Category Payer Medicare MEDICARE MEDICAR E A AND B [id number] 2019-Present [phone] [place] [address] Medicare [id number] 2018 Unknown [id number] 2018 Unknown [id number] Social History Date Type Detail Facility Start: 05-13-2022 Tobacco smoking stat us NCIS Never smoked tobacco [facility] Work Phone: Start: 05-02-2022 End: 01-11-2024 Alcohol intake Ex-drinker (finding) [facility] Start: 05-02-2022 Education 15 [facility] Start: 05-02-2022 Alcohol Comment rarely [facility] Start: 03-05-2022 [facility] Start: 1985 Sex Assigned At Not on file [facility] Start: 05-13-2022 Tobacco use and exposure Smokeless tobacco non-user [facility] Start: 09-03-2022 End: 11-11-2022 History of Social function [facility] Start: 09-03-2022 End: 11-11-2022 Tobacco use panel [facility] National Score (1-10 0), lower number is lower risk 53 [facility] Goals Date Patient Goal Desired Activity /State Personal health goal Clinical Notes 10-12-2017 to 01-11-2024 Werner Murray MD - 01/11/2024 3:46 PM Werner Bee MD - 01/08/2023 1:26 PM EDTTelephone Encounter - Jazmine Mohan RN - 11/27/2022 4:58 PM EDTPatient InstructionsPatient Instructions Note Date & Type Note Facility 01-11-2024 Note HNO ID: [id number] Author: WERNER MURRAY MD Service: ? Author Type: Physician Type: Progress Notes Filed: 01/11/2024 16:31 Note Text: Lizy is a 39 year old who presents for an annual gynecologic exam without complaints. Menses: cycles every 28-30 days and 4 days of flow. 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 She denies any asthma attacks since age 5. Dorota CONWAY RN 10/25/2012: Family history of defects Comment: 10/25/2012Jared's aunt was born with spina bifida. She at age 11 months. She has a 2nd cousin with autism. Dorota CONWAY RN No date: Hyperthyroidism 10/27/2012: Hyperthyroidism in , antepartum Comment: No proven Graves disease when not . 10/27/2012: Hyperthyroidism in , antepartum Comment: No proven hyperthyroidism when not . No date: Mitral valve disorders(424.0) Comment: Mitral valve disorder No date: Other acne No date: Placental abruptionPAST SURGICAL HISTORY No date: TONSILLECTOMY PRIMARY/SECONDARY Comment: Tonsillectomy FAMILY HISTORY Problem Relation Age of Onset Hyperlipidemia Mother other (aplastic anemia) Mother 67 bone marrow transplant Diabetes Mother Blood Clots Mother Hypertension Father Lipids Father No Known Problems Sister Arthritis Maternal Grandmother Stroke Maternal Grandmother Heart Maternal Grandfather Aneurysm Maternal Grandfather ABDOMINAL ANEURYSM Osteoporosis Paternal Grandmother Cancer Paternal Grandmother No Known Problems Daughter No Known Problems Daughter No Known Problems Son Breast Cancer Paternal Aunt SOCIAL HISTORY Social History Tobacco Use Smoking status: Never Smokeless tobacco: Never Vaping Use Vaping status: Never Used Substance Use Topics Alcohol use: Not Currently Comment: rarely Drug use: No REVIEW OF SYSTEMS Abdomen: No abdominal pain, nausea, vomiting, diarrhea, or constipation. No bloating, early satiety, indigestion, or increased flatulence. Bladder: No dysuria, gross hematuria, urinary frequency, urinary urgency, or incontinence. Breast: No breast lumps, nipple d/c, overlying skin changes, redness or skin retraction. Allergies and current medication updated:Yes EXAM: BP 124/74 Ht 5' 4 (1.63m) Wt 120 lb (54.4kg) LMP 12/31/2023 BMI 20.59 kg/(m2). GENERAL: pleasant, female in no apparent distress HEENT: Normocephalic, atraumatic, mucus membranes moist, and no lesions NECK: Supple, full range of motion, no adenopathy, and thyroid normal DERMATOLOGY: Normal, without lesions, non-icteric, and non-hirsute BREAST: soft, non-tender, symmetric, no dominant mass, normal nipple-areolar complex, no lymphadenopathy, and no nipple discharge CHEST: Normal inspiratory effort ABDOMEN: soft, non-tender, and no masses PELVIC: external genitalia normal, normal Bartholin's glands, urethra, Pritchett's glands, no vulvar lesions, no cervical lesions, good vaginal support, physiologic discharge present, normal appearing perineal body and perianal region BIMANUAL: uterus normal size, shape and consistency, no adnexal masses, and non-tender RECTOVAGINAL: deferred. NEURO: alert and oriented x3,exam grossly non-focal EXTREMITIES: normal ASSESSMENT/PLAN: 1) Health maintenance: Pap/HPV up to date. Mammogram up to date . 2) Contraception: vasectomy. Contraceptive options reviewed and information provided. 3) STD screening: Declined STD check. 4) Follow up one year or sooner as needed Werner Murray MD [facility] 01-11-2024 History of Presen t illness Narrative Lizy is a 39 year old who presents for an annual gynecologic exam without complaints. Menses: cycles every 28-30 days and 4 days of flow. 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 She denies any asthma attacks since age 5. Dorota CONWAY RN 10/25/2012: Family history of defects Comment: 10/25/2012Pt's aunt was born with spina bifida. She at age 11 months. She has a 2nd cousin with autism. Dorota CONWAY RN No date: Hyperthyroidism 10/27/2012: Hyperthyroidism in , antepartum Comment: No proven Graves disease when not . 10/27/2012: Hyperthyroidism in , antepartum Comment: No proven hyperthyroidism when not . No date: Mitral valve disorders(424.0) Comment: Mitral valve disorder No date: Other acne No date: Placental abruptionPAST SURGICAL HISTORY No date: TONSILLECTOMY PRIMARY/SECONDARY <AGE 12 Comment: Tonsillectomy FAMILY HISTORY Problem Relation Age of Onset Hyperlipidemia Mother other (aplastic anemia) Mother 67 bone marrow transplant Diabetes Mother Blood Clots Mother Hypertension Father Lipids Father No Known Problems Sister Arthritis Maternal Grandmother Stroke Maternal Grandmother Heart Maternal Grandfather Aneurysm Maternal Grandfather ABDOMINAL ANEURYSM Osteoporosis Paternal Grandmother Cancer Paternal Grandmother No Known Problems Daughter No Known Problems Daughter No Known Problems Son Breast Cancer Paternal Aunt SOCIAL HISTORY Social History Tobacco Use Smoking status: Never Smokeless tobacco: Never Vaping Use Vaping status: Never Used Substance Use Topics Alcohol use: Not Currently Comment: rarely Drug use: No REVIEW OF SYSTEMS Abdomen: No abdominal pain, nausea, vomiting, diarrhea, or constipation. No bloating, early satiety, indigestion, or increased flatulence. Bladder: No dysuria, gross hematuria, urinary frequency, urinary urgency, or incontinence. Breast: No breast lumps, nipple d/c, overlying skin changes, redness or skin retraction. Allergies and current medication updated:Yes EXAM: BP 124/74 Ht 5' 4 (1.63m) Wt 120 lb (54.4kg) LMP 12/31/2023 BMI 20.59 kg/(m^2). GENERAL: pleasant, female in no apparent distress HEENT: Normocephalic, atraumatic, mucus membranes moist, and no lesions NECK: Supple, full range of motion, no adenopathy, and thyroid normal DERMATOLOGY: Normal, without lesions, non-icteric, and non-hirsute BREAST: soft, non-tender, symmetric, no dominant mass, normal nipple-areolar complex, no lymphadenopathy, and no nipple discharge CHEST: Normal inspiratory effort ABDOMEN: soft, non-tender, and no masses PELVIC: external genitalia normal, normal Bartholin's glands, urethra, Pritchett's glands, no vulvar lesions, no cervical lesions, good vaginal support, physiologic discharge present, normal appearing perineal body and perianal region BIMANUAL: uterus normal size, shape and consistency, no adnexal masses, and non-tender RECTOVAGINAL: deferred. NEURO: alert and oriented x3,exam grossly non-focal EXTREMITIES: normal ASSESSMENT/PLAN: 1) Health maintenance: Pap/HPV up to date. Mammogram up to date . 2) Contraception: vasectomy. Contraceptive options reviewed and information provided. 3) STD screening: Declined STD check. 4) Follow up one year or sooner as needed Werner Murray MD documented in this encounter [facility] 01-08-2023 History of Presen t illness Narrative VISIT Lizy Leary is a 38 year old year old here for visit. Delivery Summary: ROS/ Recovery: Feeding: Bottle feeding, pumping breast milk problems: None Menses since delivery: n/a Menstrual pattern prior to : Regular periods [place] since delivery: Not resumed Depression: denies symptoms of depression. OB Depression and Anxiety Screening- This Encounter (since 01/07/2023) Over the past 2 weeks have you felt down, depressed, or hopeless? Negative Over the past two weeks, have you felt little interest or pleasure in doing things? Negative Feeling nervous, anxious or on edge 0-Not at all Not being able to stop or control worrying 0-Not al all Anxiety Pre-Screening Total (If >/= 3 additional questions will be reviewed) 0 Emotional support: Yes Bowel symptoms: Negative for abdominal discomfort, blood in stools or black stools and change in bowel habits Abdomen: N/A Bladder symptoms: No dysuria, gross hematuria, urinary frequency, urinary urgency, or incontinence Other issues: None Last Pap: 2019 normal HPV: negative PAST MEDICAL HISTORY Diagnosis Date Asthma CHILDHOOD Childhood asthma 10/25/2012 10/25/2012Rochelle has a history of childhood asthma. She denies any asthma attacks since age 5. Dorota CONWAY RN Family history of defects 10/25/2012 10/25/2012Pt's aunt was born with spina bifida. She at age 11 months. She has a 2nd cousin with autism. Dorota CONWAY RN Hyperthyroidism Hyperthyroidism in , antepartum 10/27/2012 No proven Graves disease when not . Hyperthyroidism in , antepartum 10/27/2012 No proven hyperthyroidism when not . Mitral valve disorders(424.0) Mitral valve disorder Other acne Placental abruption PAST SURGICAL HISTORY Procedure Laterality Date TONSILLECTOMY PRIMARY/SECONDARY <AGE 12 Tonsillectomy FAMILY HISTORY Problem Relation Age of Onset Hyperlipidemia Mother other (aplastic anemia) Mother 67 bone marrow transplant Diabetes Mother Blood Clots Mother Hypertension Father Lipids Father No Known Problems Sister Arthritis Maternal Grandmother Stroke Maternal Grandmother Heart Maternal Grandfather Aneurysm Maternal Grandfather ABDOMINAL ANEURYSM Osteoporosis Paternal Grandmother Cancer Paternal Grandmother No Known Problems Daughter No Known Problems Daughter No Known Problems Son Breast Cancer Paternal Aunt Social History Tobacco Use Smoking status: Never Smokeless tobacco: Never Vaping Use Vaping Use: Never used Substance Use Topics Alcohol use: Not Currently Comment: rarely Drug use: No PHYSICAL EXAMINATION: BP 118/64 Ht 5' 3.5 (1.61m) Wt 120 lb (54.4kg) LMP 02/19/2022 BMI 20.92 kg/(m^2). GENERAL: pleasant, female in no apparent distress HEENT: Normocephalic, atraumatic, mucus membranes moist, and no lesions NECK: Supple, full range of motion, no adenopathy, and thyroid normal DERMATOLOGY: Normal, without lesions, non-icteric, and non-hirsute BREAST: soft, non-tender, symmetric, no dominant mass, normal nipple-areolar complex, no lymphadenopathy, and no nipple discharge CHEST: Normal inspiratory effort ABDOMEN: soft, non-tender, and no masses. INCISION: N/A PELVIC: external genitalia normal, normal Bartholin's glands, urethra, Pritchett's glands, no vulvar lesions, no cervical lesions, good vaginal support, physiologic discharge present, normal appearing perineal body and perianal region BIMANUAL: uterus normal size, shape and consistency, no adnexal masses, and non-tender NEURO: alert and oriented x3,exam grossly non-focal EXTREMITIES: normal ASSESSMENT AND PLAN: 38 year old status post with normal course. Contraception plan: vasectomy Follow up: RTC for annual exams and PRN Werner Murray MD documented in this encounter [facility] 11-27-2022 Miscellaneous Notes Paperwork signed by SW and faxed to employer. Copy in fax folder and sent to medical records to be scanned into ams AG. Jazmine Mohan RN FMLA paperwork completed for spouse and to SW to sign. Jazmine Mohan RN documented in this encounter [facility] 11-24-2022 History of Presen t illness Narrative Patient delivered via by Dr. Keller on 11/21/22 at [facility]. See OB history. Jazmine Mohan RN documented in this encounter [facility] 11-20-2022 History of Presen t illness Narrative NST SUMMARY PROVIDER ASSESSMENT AND INTERPRETATION Lizy Leary is a 37 year old female, , who is at 39w1d with an JEAN CARLOS of 11/26/2022, by Last Menstrual Period dating method. Indications for NST: AMA Baseline: 140 Variability: Moderate Accelerations: Present 15 X 15 Decelerations: None Contractions: TOCO: None Interpretation: Category I and Reactive SIGNATURE: Emily Gutierrez MD documented in this encounter [facility] 11-20-2022 Miscellaneous Notes DM- Pt doing well today. Denies Vaginal Bleeding, Leaking fluid, or contractions. Pt reports good movement. Had headache yesterday. Denies PAUL, visual changes or RUQ or Epigastric pain today. NST today- reactive Cat 1. BPs 135-155/80s. Discussed findings with patient- GHTN recommend IOL- pt does not want IOL. Pt advised with AMA and elevated BPs this would be my advice, if she declines at least get labs, prolonged monitoring and serial BPs at [facility]- she is agreeable and if elevated there will discuss IOL further. [facility] L&D notified. Emily Gutierrez MD documented in this encounter [facility] 11-20-2022 Instructions Naa Cisse MA - 11/20/2022 10:52 AM EDT SEQUENTIAL SCREENINGS The [facility] offers sequential screenings for women who are interested in screenings for chromosomal abnormalities and certain defects during a . The sequential screen combines ultrasound and blood tests to determine the risk of chromosomal abnormalities, including Down's Syndrome (Trisomy 21) and Trisomy 18, as well as open neural tube defects including spina bifida. Ultrasound examination is performed between 11 weeks and 13 weeks gestational age. Blood tests are drawn after the ultrasound and again later in the between 15 and 21 weeks gestational age. Please let your physician know if you are interested in this testing. It will require an appointment with our rf test technician. This is not an ultrasound performed by a physician in our office during a routine visit. SIGNS AND SYMPTOMS OF LABOR 1. Contractions every 10 minutes or more often 2. Clear, pink, or brownish fluid (water) leaking from vagina 3. Feeling that baby is pushing down, pressure 4. Low, dull backache 5. Cramps that feel like a period 6. Cramps with or without diarrhea If you notice any of the above symptoms, contact our office at [phone] and ask to speak with a nurse. After hours, you can call [facility] [facility] at [phone] OR call [facility] at [phone] and ask to have the doctor station manager paged. If you consider this an emergency, dial 9-1- or go to your nearest emergency department. NEED HELP? Are you dealing with a violent or abusive relationship? Are you a victim of rape or sexual assult? Call [facility] ([place]) 24 hour Crisis Hotline: 139.193.8827 or 036-907-8436. MANUAL Your Guide to a Healthy manual is now on-line. Visit [email or web address] to download your free copy documented in this encounter [facility] 11-11-2022 Miscellaneous Notes RR- VB No. LOF No. CTXS No. Movement: present. Other c/o: No. Medication list reviewed. Physical Exam See Flow Sheet Abd: soft, nontender, gravid Ext: edema: Trace A/P 37w6d Estimated Date of Delivery: 11/26/22 d/w her recommendation for induction by 40 weeks. Option to induce at 39. Not interested at this time. Would like to schedukle NST next week. Schedule w/ me on 11/24 for NST and OB visit and recheck. Werner Murray M.D. documented in this encounter [facility] 11-11-2022 Shruthi Vasquez Ma - 11/11/2022 10:43 AM EDT SEQUENTIAL SCREENINGS The [facility] offers sequential screenings for women who are interested in screenings for chromosomal abnormalities and certain defects during a . The sequential screen combines ultrasound and blood tests to determine the risk of chromosomal abnormalities, including Down's Syndrome (Trisomy 21) and Trisomy 18, as well as open neural tube defects including spina bifida. Ultrasound examination is performed between 11 weeks and 13 weeks gestational age. Blood tests are drawn after the ultrasound and again later in the between 15 and 21 weeks gestational age. Please let your physician know if you are interested in this testing. It will require an appointment with our rf test technician. This is not an ultrasound performed by a physician in our office during a routine visit. SIGNS AND SYMPTOMS OF LABOR 1. Contractions every 10 minutes or more often 2. Clear, pink, or brownish fluid (water) leaking from vagina 3. Feeling that baby is pushing down, pressure 4. Low, dull backache 5. Cramps that feel like a period 6. Cramps with or without diarrhea If you notice any of the above symptoms, contact our office at [phone] and ask to speak with a nurse. After hours, you can call doctors registry at [phone] OR call [facility] at [phone] and ask to have the doctor station manager paged. If you consider this an emergency, dial or go to your nearest emergency department. NEED HELP? Are you dealing with a violent or abusive relationship? Are you a victim of rape or sexual assult? Call [facility] ([place]) 24 hour Crisis Hotline: 325.935.3857 or 264-785-6024. MANUAL Your Guide to a Healthy manual is now on-line. Visit [email or web address] to download your free copy documented in this encounter [facility] 11-06-2022 Miscellaneous Notes Lizy Leary is a 37 year old female who presents at 37w1d for a routine visit. Good movement. Occasional contractions. Denies headache, visual changes, chest pain, shortness of breath, vaginal bleeding, leakage of fluid, or dysuria. Feeling well, no complaints. Working up to due date. Size equal to dates. 29 lbs TWG. Labor precautions reviewed. RTC in 1 week or sooner if needed. Nancy oLpez APRN.CNM documented in this encounter [facility] 11-06-2022 Miriam Deras Cma - 11/06/2022 8:17 AM EDT SEQUENTIAL SCREENINGS [facility] offers sequential screenings for women who are interested in screenings for chromosomal abnormalities and certain defects during a . The sequential screen combines ultrasound and blood tests to determine the risk of chromosomal abnormalities, including Down's Syndrome (Trisomy 21) and Trisomy 18, as well as open neural tube defects including spina bifida. Ultrasound examination is performed between 11 weeks and 13 weeks gestational age. Blood tests are drawn after the ultrasound and again later in the between 15 and 21 weeks gestational age. Please let your physician know if you are interested in this testing. It will require an appointment with our rf test technician. This is not an ultrasound performed by a physician in our office during a routine visit. SIGNS AND SYMPTOMS OF LABOR 1. Contractions every 10 minutes or more often 2. Clear, pink, or brownish fluid (water) leaking from vagina 3. Feeling that baby is pushing down, pressure 4. Low, dull backache 5. Cramps that feel like a period 6. Cramps with or without diarrhea If you notice any of the above symptoms, contact our office at [phone] and ask to speak with a nurse. After hours, you can call doctors registry at [phone] OR call [facility] at [phone] and ask to have the doctor station manager paged. If you consider this an emergency, dial 9-1-9 or go to your nearest emergency department. NEED HELP? Are you dealing with a violent or abusive relationship? Are you a victim of rape or sexual assult? Call [facility] ([place]) 24 hour Crisis Hotline: 317.400.1692 or 863-591-9441. MANUAL Your Guide to a Healthy manual is now on-line. Visit [email or web address] to download your free copy documented in this encounter [facility] 10-31-2022 History of Past i llness Narrative Problem Noted Date Diagnosed Date Resolved Date Positive GBS test 10/31/2022 01/08/2023 Antepartum multigravida of a dvanced maternal age 1205/02/2022 01/08/2023 Overview: 05/02/2022iLzy Leary is a 37 year old female seen for pnob. Patient is 37 years old. Advanced maternal age discussed. Noninvasive and invasive testing options discussed. Patient desires aneuploidy screening. See telephone note dated 05/02/2022. TKRN Medication exposure during f irst trimester of 05/02/2022 01/08/2023 Overview: 05/02/2022atient states she did take spironolactone for acne until she found out she was . She states that she was aware that she needed to stop the medication once she was . I did read for her drug information on [employer] and she will discuss this with Dr. Murray at her new OB appointment. TKRN History of placenta abruption 05/02/2022 01/08/2023 Overview: 05/02/2022 Patient has a history of abruptio placenta with her last . TKRN Family history of defects 05/02/2022 01/08/2023 Overview: 05/02/2022 Patient's aunt born with spina bifida and at 11 months of age. 's brother born deaf. Patient declines genetic carrier screening testing.Dorota Telol RN GBS carrier 10/12/2017 12/10/2017 H/O mitral valve disorder 03/19/2017 Overview: 03/19/2017 Pt states she was diagnosed with MVP in 2006 by a doctor in [place]. She states she does not take antibiotics prior to dental procedures. TKRN History of prior with IUGR 7 12/10/2017 Overview: 09/11/17: Growth us from [facility] reviewed- 76% (2192g) . See scanned documents. Emily Gutierrez MD 03/19/2017 Patient has a history of IUGR with her first . The baby's weight was 4 lbs. 13 oz. and was born term @ 38w2d. Her 2nd baby was born at 40w4d @ 6lb7oz. TKRN Family history of spina bifida 03/19/2017 12/10/2017 Overview: 03/19/2017 Pt's aunt was born with spina bifida. She at age 11 months. TKRN. TKRN Patient travels 03/19/2017 12/10/2017 Overview: 03/19/2017Patient travelled to [facility] in November 2016. Discussed Zika screening testing. Patient will talk more to Dr Melara about this at her appointment tommorrow. TKRN Patient requested diagnostic testing 03/19/2017 12/10/2017 Overview: 03/19/2017Patient considering nuchal ultrasound, but [facility] ultras[facility]. Patient declines CF carrier screening testing Dorota CONWAY RN Patient underweight 01/29/2015 01/09/20 23 Abnormal glucose complicating 03/01/2013 06/30/2013 Overview: Normal 3 hr GTT Supervision of other normal 01/10/2013 06/30/2013 Overview: Girl on us Hyperthyroidism in , antepartum 10/27/2012 07/22/2019 Overview: No proven hyperthyroidism when not . Thyroid disease in 10/27/2012 07/06/2013 History of miscarriage, currently 10/25/2012 04/13/2013 Overview: 10/25/2012She has a history of irregular menses every 28-56 days. She has a history of a miscarriage August 2012. She denies any bleeding or pain this . Ultrasound ordered by Dr. Antonio @ [facility] per pt request. Order form given faxed to [facility]. for history of miscarriage and irregular menses. Dorota CONWAY RN MVP (mitral valve prolapse) 10/25/2012 06/30/2013 Overview: 10/25/2012Pt states she was diagnosed with MVP in 2005 by a doctor in [place]. She states she does not take antibiotics prior to dental procedures. Dorota Tello BSN RN IUGR (intrauterine growth re striction) in prior , 10/25/2012 01/08/2023 Overview: 05/02/2022 first . Baby's weight was 4 pounds 13 ounces. April 16, 2013 US on 03/30/13 at [facility] reviewed, shows 2101 gm, 37 percentile. AGA, normal AFV 18 cm. No evidence of IUGR. Follow clinically, kick counts. No testing indicated. Werner Murray MD Toxic diffuse goiter without mention of thyrotoxic crisis or storm 04/02/2011 10/27/2012 Overview: 10/25/2012 Patient was diagnosed with hyperthyroidism during her last by Dr. Soriano. She states she took medication for 6 months, ending March 2012. Discussed history of hyperthyroidism with Dr. Antonio. Patient to have TSH, free T3, and T4 done today.Dorota CONWAY RN Abnormality in heart r ate/rhythm, antepartum condition or complication 01/29/2011 Hyperthyroidism in , antepartum 11/27/2010 03/21/2011 Supervision of normal first 09/05/2010 03/21/2011 documented as of this encounter (statuses as of 01/08/2023) [facility]-14[facility] Miscellaneous Notes* Quick Notes - Werner Murray MD - 10/15/2022 11:31 AM EDT RR- no VB/LOF. Good FM. Still uncomfortable at times w/ constipation. F/u in 2 weeks or prn. US forgrowth due to h/o IUGR w/ first . Werner Murray MD [facility] Instructions* Patient Instructions* Shruthi Coffey Ma - 10/15/2022 11:15 AM EDT SEQUENTIAL SCREENINGS [facility] offers sequential screenings for women who are interested in screenings for chromosomal abnormalities and certain defects during a . The sequential screen combinesultrasound and blood tests to determine the risk of chromosomal abnormalities, including Down's Syndrome (Trisomy 21) and Trisomy 18, as well as open neural tube defects including spina bifida. Ultrasound examination is performed between 11 weeks and 13 weeks gestational age. Blood tests are drawn after the ultrasound and again later in the between 15 and 21 weeks gestational age. Please let your physician know if you are interested in this testing. It will require an appointment withour rf test technician. This is not an ultrasound performed by a physician in our office during a routine visit. SIGNS AND SYMPTOMS OF LABOR 1. Contractions every 10 minutes or more often 2. Clear, pink, or brownish fluid (water) leaking from vagina 3. Feeling that baby is pushing down, pressure 4. Low, dull backache 5. Cramps that feel like a period 6. Cramps with or without diarrhea If you notice any of the above symptoms, contact our office at [phone] and ask to speak with anurse. After hours, you can call doctors registry at [phone] OR call [facility] at [phone] ask to have the doctor station manager paged. If you consider this an emergency, dial 91-4 or go to your nearest emergency department. NEED HELP? Are you dealing with a violent or abusive relationship? Are you a victim of rape or sexual assult? Call [facility] ([place]) 24 hour Crisis Hotline: 128.522.8511 or 134-751-0419. MANUAL Your Guide to a Healthy manual is now on-line. Visit [email or web address] to download your free copy documented [facility] History of Present illness Narrative* Shruthi Coffey Ma - 10/15/2022 11:14 AM EDT Patient identified by name and date of . Lizy Leary presents today for a vaccination of Tdap. Patient denies an allergy to latex: yes Patient denies a severe (life-threatening) allergy to a previous dose of Tdap, DTP, DTaP, DT or Td vaccine. Yes Patient denies history of epilepsy or neurological problems: Yes Patient is afebrile and denies being moderately or severely ill: Yes Patient denies history of Guillain-[place]glewood Syndrome (a severe paralytic illness): Yes Tdap Adacel injection was given without incident. See immunizations for details of immunizations administered today. VIS sheet provided: Yes Provider Dr Murray was present in office at time of injection. Shruthi Coffey Ma documented in this encounter[facility]05-[facility] Miscellaneous Notes* Quick Notes - Werner Murray MD - 10/01/2022 11:22 AM EDT RR- Good FM. Pain a little better in RUQ, notes somewhat worse if hasn't had a BM for a while. Going to start a stool softener. No edema. F/u in 2 weeks or prn. Werner Murray MD documented in this encounter[facility]05-31-[facility] Instructions* Patient Instructions* Shruthi Coffey Ma - 10/01/2022 11:10 AM EDT SEQUENTIAL SCREENINGS [facility] offers sequential screenings for women who are interested in screenings for chromosomal abnormalities and certain defects during a . The sequential screen combinesultrasound and blood tests to determine the risk of chromosomal abnormalities, including Down's Syndrome (Trisomy 21) and Trisomy 18, as well as open neural tube defects including spina bifida. Ultrasound examination is performed between 11 weeks and 13 weeks gestational age. Blood tests are drawn after the ultrasound and again later in the between 15 and 21 weeks gestational age. Please let your physician know if you are interested in this testing. It will require an appointment withour rf test technician. This is not an ultrasound performed by a physician in our office during a routine visit. SIGNS AND SYMPTOMS OF LABOR 1. Contractions every 10 minutes or more often 2. Clear, pink, or brownish fluid (water) leaking from vagina 3. Feeling that baby is pushing down, pressure 4. Low, dull backache 5. Cramps that feel like a period 6. Cramps with or without diarrhea If you notice any of the above symptoms, contact our office at [phone] and ask to speak with anurse. After hours, you can call doctors registry at [phone] OR call [facility] at [phone] ask to have the doctor station manager paged. If you consider this an emergency, dial 9-1-9 or go to your nearest emergency department. NEED HELP? Are you dealing with a violent or abusive relationship? Are you a victim of rape or sexual assult? Call [facility] ([place]) 24 hour Crisis Hotline: 179.240.5483 or 552-699-5087. MANUAL Your Guide to a Healthy manual is now on-line. Visit [email or web address] to download your free copy documented in this encounterPark[facility]05-[facility] Miscellaneous Notes* Quick Notes - Werner Murray MD - 09/03/2022 11:25 AM EDT RR_ No VB/LOF. Good FM. TSH low but other levels normal so no further labs needed. Still having pain and pressure after she eats. Pain in gallbladder area. Radiates under her back. No fever or vomiting. Trying to eat smaller amounts but is hungry but when she eats she is miserable. Will order RUQ ,upper abdominal scan. Recommend consult w/ general surgery. Werner Murray MD documented in this encounterPark[facility] Hospital05-03-[facility]23 Instructions* Patient Instructions* Gabi Jeong Ma - 09/03/2022 11:05 AM EDT SEQUENTIAL SCREENINGS [facility] offers sequential screenings for women who are interested in screenings for chromosomal abnormalities and certain defects during a . The sequential screen combinesultrasound and blood tests to determine the risk of chromosomal abnormalities, including Down's Syndrome (Trisomy 21) and Trisomy 18, as well as open neural tube defects including spina bifida. Ultrasound examination is performed between 11 weeks and 13 weeks gestational age. Blood tests are drawn after the ultrasound and again later in the between 15 and 21 weeks gestational age. Please let your physician know if you are interested in this testing. It will require an appointment withour rf test technician. This is not an ultrasound performed by a physician in our office during a routine visit. SIGNS AND SYMPTOMS OF LABOR 1. Contractions every 10 minutes or more often 2. Clear, pink, or brownish fluid (water) leaking from vagina 3. Feeling that baby is pushing down, pressure 4. Low, dull backache 5. Cramps that feel like a period 6. Cramps with or without diarrhea If you notice any of the above symptoms, contact our office at [phone] and ask to speak with anurse. After hours, you can call doctors registry at [phone] OR call [facility] at [phone] ask to have the doctor station manager paged. If you consider this an emergency, dial 9-1-3 or go to your nearest emergency department. NEED HELP? Are you dealing with a violent or abusive relationship? Are you a victim of rape or sexual assult? Call [facility] ([place]) 24 hour Crisis Hotline: 239.421.2842 or 874-126-0900. MANUAL Your Guide to a Healthy manual is now on-line. Visit [email or web address] to download your free copy documented in this encounterParkwood Hospital04-26-2023 Miscellaneous Notes* Telephone Encounter - Sarah Unger RN - 08/27/2022 4:37 PM EDT Attempted to contact patient but no answer and unable to leave a message as voicemail box is full. [facility] [employer] message also sent. Sarah Unger RN * Telephone Encounter - Werner Murray MD - 08/27/2022 4:34 PM EDT Her T3 and T4 are normal so she is not hyperthyroid at this time. No further labs at this time. Werner Murray MD * Telephone Encounter - Jazmine Mohan RN - 08/27/2022 4:28 PM EDT Thyroid labs received from [facility]. To RR to review. Jazmine Mohan RN documented in this encounterParkwood Hospital04-25-2023 Miscellaneous Notes* Telephone Encounter - Veronica Carlson LPN - 08/26/2022 3:51 PM EDT Form faxed to [facility] lab. Veronica Carlson LPN * Telephone Encounter - Veronica Carlson LPN - 08/26/2022 3:42 PM EDT Lab form placed on Dr Murray's desk for signature.pt notified and will have labs done tomorrow 08/27/22 Veronica Carlson LPN * Telephone Encounter - Werner Murray MD - 08/26/2022 3:38 PM EDT 28 week labs reviewed. TSH now low. Recommend other thyroid labs. Gets at [facility]. please give me labs slip to order them and let her know we will fax it over. Thanks. Werner Murray MD documented in this encounterParkwood Hospital04-07-2023 Miscellaneous Notes* Quick Notes - Werner Murray MD - 08/08/2022 11:03 AM EDT RR_ No VB/LOF. Some RUQ pain after eats. Has to lie down. No reflux or vomiting, no fever. Mostly after bigger meals. Had last preganncy but maybe not as intense. D/w her symptomatic measures. F/u in4 weeks. 28 week labs done, ordered at [facility]. TSH added to 28 week labs. Werner Murray MD documented in this encounterParkwood Hospital04-07-2023 Instructions* Patient Instructions* Shruthi Coffey Ma - 08/08/2022 10:56 AM EDT SEQUENTIAL SCREENINGS [facility] offers sequential screenings for women who are interested in screenings for chromosomal abnormalities and certain defects during a . The sequential screen combinesultrasound and blood tests to determine the risk of chromosomal abnormalities, including Down's Syndrome (Trisomy 21) and Trisomy 18, as well as open neural tube defects including spina bifida. Ultrasound examination is performed between 11 weeks and 13 weeks gestational age. Blood tests are drawn after the ultrasound and again later in the between 15 and 21 weeks gestational age. Please let your physician know if you are interested in this testing. It will require an appointment withour rf test technician. This is not an ultrasound performed by a physician in our office during a routine visit. SIGNS AND SYMPTOMS OF LABOR 1. Contractions every 10 minutes or more often 2. Clear, pink, or brownish fluid (water) leaking from vagina 3. Feeling that baby is pushing down, pressure 4. Low, dull backache 5. Cramps that feel like a period 6. Cramps with or without diarrhea If you notice any of the above symptoms, contact our office at [phone] and ask to speak with anurse. After hours, you can call doctors registry at [phone] OR call [facility] at [phone] ask to have the doctor station manager paged. If you consider this an emergency, dial 9--0 or go to your nearest emergency department. NEED HELP? Are you dealing with a violent or abusive relationship? Are you a victim of rape or sexual assult? Call [facility] ([place]) 24 hour Crisis Hotline: 311.864.4632 or 688-730-9753. MANUAL Your Guide to a Healthy manual is now on-line. Visit [email or web address] to download your free copy documented in this encounterParkwood Hospital03-06-2023 Instructions* Patient Instructions* Shruthi Coffey Ma - 07/07/2022 4:06 PM EST SEQUENTIAL SCREENINGS [facility] offers sequential screenings for women who are interested in screenings for chromosomal abnormalities and certain defects during a . The sequential screen combinesultrasound and blood tests to determine the risk of chromosomal abnormalities, including Down's Syndrome (Trisomy 21) and Trisomy 18, as well as open neural tube defects including spina bifida. Ultrasound examination is performed between 11 weeks and 13 weeks gestational age. Blood tests are drawn after the ultrasound and again later in the between 15 and 21 weeks gestational age. Please let your physician know if you are interested in this testing. It will require an appointment withour rf test technician. This is not an ultrasound performed by a physician in our office during a routine visit. SIGNS AND SYMPTOMS OF LABOR 1. Contractions every 10 minutes or more often 2. Clear, pink, or brownish fluid (water) leaking from vagina 3. Feeling that baby is pushing down, pressure 4. Low, dull backache 5. Cramps that feel like a period 6. Cramps with or without diarrhea If you notice any of the above symptoms, contact our office at [phone] and ask to speak with anurse. After hours, you can call doctors registry at [phone] OR call [facility] at [phone] ask to have the doctor station manager paged. If you consider this an emergency, dial 9-7-7 or go to your nearest emergency department. NEED HELP? Are you dealing with a violent or abusive relationship? Are you a victim of rape or sexual assult? Call [facility] ([facility] 24 hour Crisis Hotline: 736.562.2460 or 945-173-5826. MANUAL Your Guide to a Healthy manual is now on-line. Visit [email or web address] to download your free copy documented in this encounterParkwood Hospital03-06-2023 Miscellaneous Notes* Quick Notes - Werner Murray MD - 07/07/2022 4:06 PM EST RR_ doing well overall. Some FM. It's a girl. Anatomy US done at [facility]. F/u in 4 weeks or prn. Werner Murray MD documented in this encounterParkwood Hospital02-07-2023 Miscellaneous Notes* Quick Notes - Werner Murray MD - 06/10/2022 4:32 PM EST RR- Doing well overall. No VB/LOF. No flutters yet. F/u in 4 weeks or prn. AFP and TSH ordered. Anatomy US ordered. Werner Murray MD documented in this encounterParkwood Hospital02-07-2023 Instructions* Patient Instructions* Shruthi Coffey Ma - 06/10/2022 4:07 PM EST SEQUENTIAL SCREENINGS [facility] offers sequential screenings for women who are interested in screenings for chromosomal abnormalities and certain defects during a . The sequential screen combinesultrasound and blood tests to determine the risk of chromosomal abnormalities, including Down's Syndrome (Trisomy 21) and Trisomy 18, as well as open neural tube defects including spina bifida. Ultrasound examination is performed between 11 weeks and 13 weeks gestational age. Blood tests are drawn after the ultrasound and again later in the between 15 and 21 weeks gestational age. Please let your physician know if you are interested in this testing. It will require an appointment withour rf test technician. This is not an ultrasound performed by a physician in our office during a routine visit. SIGNS AND SYMPTOMS OF LABOR 1. Contractions every 10 minutes or more often 2. Clear, pink, or brownish fluid (water) leaking from vagina 3. Feeling that baby is pushing down, pressure 4. Low, dull backache 5. Cramps that feel like a period 6. Cramps with or without diarrhea If you notice any of the above symptoms, contact our office at [phone] and ask to speak with anurse. After hours, you can call doctors registry at [phone] OR call [facility] at [phone] ask to have the doctor station manager paged. If you consider this an emergency, dial 9-1-8 or go to your nearest emergency department. NEED HELP? Are you dealing with a violent or abusive relationship? Are you a victim of rape or sexual assult? Call [facility] ([place]) 24 hour Crisis Hotline: 852.963.3712 or 765-235-1563. MANUAL Your Guide to a Healthy manual is now on-line. Visit [email or web address] to download your free copy documented in this encounterParkwood Hospital01-30-2023 Miscellaneous Notes* Telephone Encounter - Veronica Carlson LPN - 06/02/2022 9:20 AM EST Pt notified and will schedule at her next visit on 06/10/22. Veronica Carlson LPN * Telephone Encounter - Werner Murray MD - 06/02/2022 8:40 AM EST Please notify patient of low risk results. Recommend AFP at 16-18 weeks and anatomy scan at 18-20 week. Werner Murray MD * Telephone Encounter - Maria Guadalupe Haile RN - 06/02/2022 8:16 AM EST Received fax with Elizabeth Flores results. To RR to review. Maria Guadalupe Haile RN documented in this encounterParkwood Hospital01-17-2023 Miscellaneous Notes* Telephone Encounter - Jazmine Mohan RN - 05/20/2022 11:07 AM EST Kit and order form handed directly to patient. Name and verified. Jazmine Mohan RN * Telephone Encounter - Jazmine Mohan RN - 05/15/2022 2:03 PM EST Patient notified that Panorama kit and order ready for pickup. She will plan to pick it up on 05/19/22. Leave open until patient picks it up for sure. Jazmine Mohan RN * Telephone Encounter - Jazmine Mohan RN - 05/15/2022 10:35 AM EST Left message for patient to call office. Panorama kit received. Kit and order in nurse triage room. Jazmine Mohan RN * Telephone Encounter - Jazmine Mohan RN - 05/13/2022 10:40 AM EST Spoke to Nikolai. He is going to overnight a few of the Panorama testing kits to the office to receive by tomorrow. Patient is aware we will call her tomorrow once kit is received for her ot order picker/assembler. She does not want to know the gender. Order form is in nurse triage room already completed. Jazmine Mohan RN * Telephone Encounter - Dorota Tello RN - 05/13/2022 10:16 AM EST Patient desires NIPT at [facility]. Paperwork in telephone nurse area. I called [facility] , they require Panorama box to accompany patient and we do not have any in-stock. I called and left a message for Nikolai to call us back to deliver and then we will call patient to come and order picker/assembler box. Patient aware documented in this encounterParkwood Hospital01-10-2023 Miscellaneous Notes* Result Encounter Note - Werner Murray MD - 05/13/2022 1:26 PM EST Anatomy ultrasound reviewed. No abnormalities identified. Follow up as clinically indicated. Pleaseplace copy in ob chart. Werner Murray MD documented in this encounter[facility] History of Present illness Narrative* Werner Murray MD - 05/13/2022 9:03 AM EST INITIAL OB ASSESSMENT OB Provider: Werner Murray MD HPI: Lizy Leary is a 37 year old female here to establish Obstetrical Care. Patient'slast menstrual period was 02/19/2022 (approximate). from OB Dating Form. Cycle length: somewhat irreg. days Complaints: None was not prevented. OB History T3 L3 SAB2 IAB0 Ectopic0 Multiple0 Live Births3 Prior : never History of 4th degree laceration: No Patient's Risk Screening for delivery: History of abnormal pap: No Prior treatment for cervical dysplasia: none. History of STDs: None Tobacco use: No Caffeine use: occas Drug use: No Alcohol use: No Multivitamin with Folic acid: Yes Occupation: [employer] Yazidi or heritage: No Would refuse blood transfusion if medically necessary: No No weight on file for this encounter. Patient BMI over 30? No Marital Status: Partner: Name: Bryn Age: 38 Occupation: [employer] Gender: male History of STDs: None PAST MEDICAL HISTORY Diagnosis Date Asthma CHILDHOOD Childhood asthma 10/25/2012 10/25/2012Rochelle has a history of childhood asthma. She denies any asthma attacks since age 5. Dorota CONWAY microscopist history of defects 10/25/2012 10/25/2012Pt's aunt was born with spina bifida. She at age 11 months. She has a 2nd cousin with autism. Dorota CONWAY RN Hyperthyroidism Hyperthyroidism in , antepartum 10/27/2012 No proven Graves disease when not . Hyperthyroidism in , antepartum 10/27/2012 No proven hyperthyroidism when not . Mitral valve disorders(424.0) Mitral valve disorder Other acne Placental abruption PAST SURGICAL HISTORY Procedure Laterality Date TONSILLECTOMY PRIMARY/SECONDARY <AGE 10 Tonsillectomy Current Outpatient Medications on File Prior to Visit Medication Sig prental multivitamin 27 mg iron- 800 mcg tablet Take 1 tablet by mouth once daily. No current facility-administered medications on file prior to visit. Review of Systems: GENERAL: Negative for: Fever or Chills HEENT: Negative for: Headache, Impaired Vision, Ringing in Ears, Nosebleeds NECK: Negative for: Swelling, Pain, Stiffness RESPIRATORY: Negative for: Cough, Shortness of breath, Wheezing GASTROINTESTINAL: Negative for: Heartburn, Constipation, Diarrhea, Blood in stool, Vomiting MUSCULOSKELETAL: Negative for: Muscle or joint pain, stiffness, Joint swelling NEUROLOGIC/PSYCHIATRIC: Negative for: Weakness, Paralysis, Numbness, Tingling, Tremor, Anxiety, Depression, Memory loss SKIN: Negative for: Rash, Itching GENITOURINARY: Negative for: vaginal itching, vaginal discharge, hematuria or dysuria PHYSICAL EXAM: LMP 02/19/2022 GENERAL: pleasant female in no apparent distress DERMATOLOGY: Normal, without lesions, non-icteric, and non-hirsute NECK: Supple, full range of motion, no adenopathy, and thyroid normal CHEST: Normal inspiratory effort BREAST: soft, non-tender, symmetric, no dominant mass, normal nipple-areolar complex, no lymphadenopathy, and no nipple discharge ABDOMEN: soft, non-tender, and no masses NEURO: alert and oriented x3,exam grossly non-focal PELVIS: External genitalia normal without lesions. Perineal body intact. No vaginal or cervical lesions. Cervix closed. Uterus 12 week size. No adnexal masses or tenderness. Clinical Pelvimetry: Pelvimetry clinically assessed as adequate Limited OB ultrasound exam: formal US performed OB Risk Screening: Completed, positive findings include: Patient will be less than 17 or greater than 34 at the time of Delivery ASSESSMENT: 37 year old at 11w6d wks gestational age PLAN: 1) Patient oriented to practice. Discussed nutrition, folic acid supplementation, dietary guidelines, exercise, smoking, alcohol, caffeine, and drug use. Discussed routine OB labs including STD/HIV. Discussed aneuploidy screening options including serum screening and nuchal translucency. 2) Desires NIPT desires labs and US at [facility] Follow up in 4 weeks or sooner prn. Werner Murray MD documented in this encounterPark[facility]01-10-[facility]23 Instructions* Patient Instructions* Shruthi Coffey Ma - 05/13/2022 9:03 AM EST Please select the following link to access the [facility] Your Guide to a Healthy . [email or web address] documented in this encounterParkwood Hospital12-30-2022 Miscellaneous Notes* Telephone Encounter - Sarah Unger RN - 05/02/2022 12:29 PM EST Patient notified and voiced understanding. Dating ultrasound scheduled for 05/13/22. Sarah Unger RN * Telephone Encounter - Werner Murray MD - 05/02/2022 12:02 PM EST I would recommend waiting to get NIPT until after US. We can do on the . I would recommend thatb/c if there are twins or something else of concern then it would be a different test that would need ordered and insurance may not cover both. Werner Murray MD * Telephone Encounter - Werner Murray MD - 05/02/2022 11:54 AM EST Schedule formal dating scan for her please. Reschedule pelvic US to downstairs that is early that day. NIPT ordered. There are false positives and false negatives and no test checks for everygenetic abnormality. I hope she has a Happy New Year and I look forward to seeing her at her appointment. Thanks. Werner Murray MD * Telephone Encounter - Dorota Tello RN - 05/02/2022 11:01 AM EST Patient seen for Pre new OB telephone visit today. New OB appointment with Dr. Murray on May 13. She is guessing her LMP was 02/19/2022. This would make her 10 weeks and 2 days. States she may not have had a period in February-last menstrual period may have been in January. She is 37 years old and desires aneuploidy screening. 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 I have advised her that nuchal ultrasounds are done between 11 weeks and 13 weeks 6 days. Patient is aware that uncertain dates may affect ability to do nuchal ultrasound but patient would like to proceed with maternity 21 test. I have asked patient if she could be seen for dating ultrasound at [facility] and we could send order there. Patient states that her schedule is very busy forthe next 2 weeks. She declines order to be sent to [facility] for dating ultrasoundand is unable to be scheduled to for ultrasound here or earlier new OB time due to scheduling conflicts. Patient states she is perfectly fine just doing the [id number] test. FYI documented in this encounterParkwood Hospital06-11-2018 History of Past illness Narrative* Problem Noted Date Resolved Date GBS carrier 10/12/2017 12/10/2017 H/O mitral valve disorder 03/19/20172017 Overview: 03/19/2017 Pt states she was diagnosed with MVP in 2006 by a doctor in [place]. She states she does not take antibiotics prior to dental procedures. TKRN History of prior with IUGR 12/10/2017 Overview: 09/11/17: Growth us from [facility] reviewed- 76% (2192g) . See scanned documents. Emily Gutierrez MD 03/19/2017 Patient has a history of IUGR with her first . The baby's weight was 4 lbs. 13 oz. and was born term @ 38w2d. Her 2nd baby was born at 40w4d @ 6lb7oz. TKRN Family history of spina bifida 03/19/2017 0 12/10/2017 Overview: 03/19/2017 Pt's aunt was born with spina bifida. She at age 11 months. TKRN. TKRN Patient travels 03/19/2017 12/10/2017 Overview: 03/19/2017Patient travelled to [facility] in November 2016. Discussed Zika screening testing. Patient will talk more to Dr Melara about this at her appointment tommorrow. TKRN Patient requested diagnostic testing 03/19/2017 12/10/2017 Overview: 03/19/2017Patient considering nuchal ultrasound, but wants ultrasounds done at [facility]. Patient declines CF carrier screening testing Dorota CONWAY RN Abnormal glucose complicating 03/01/20 13 06/30/2013 Overview: Normal 3 hr GTT Supervision of other normal 01/10/2013 06/30/2013 Overview: Girl on us Hyperthyroidism in , antepartum 013 07/22/2019 Overview: No proven hyperthyroidism when not . Thyroid disease in 10/27/201209/2013 History of miscarriage, currently 10/2504/13/2013 Overview: 10/25/2012She has a history of irregular menses every 28-56 days. She has a history of a miscarriage August 2012. She denies any bleeding or pain this . Ultrasound ordered by Dr. Antonio @ [facility] per pt request. Order form given faxed to [facility]. for history of miscarriage and irregular menses. Dorota CONWAY RN MVP (mitral valve prolapse) 10/25/201206/05 Overview: 10/25/2012Pt states she was diagnosed with MVP in 2005 by a doctor in [place]. She states she does not take antibiotics prior to dental procedures. 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 Soriano. She states she took medication for 6 months, ending March 2012. Discussed history of hyperthyroidism with Dr. Antonio. Patient to have TSH, free T3, and T4 done today.Dorota CONWAY RN Abnormality in heart r ate/rhythm, antepartum condition or complication 01/29/2011 03/21/2011 Hyperthyroidism in , antepartum 011 03/21/2011 Supervision of normal first 09/05/2010 03/21/2011 documented as of this encounter (statuses as of 05/07/2022) [facility] of Past illness Narrative* Problem Noted Date Resolved Date GBS carrier 10/12/2017 12/10/2017 H/O mitral valve disorder 03/19/20172017 Overview: 03/19/2017 Pt states she was diagnosed with MVP in 2005 by a doctor in [place]. She states she does not take antibiotics prior to dental procedures. TKRN History of prior with IUGR 12/10/2017 Overview: 09/11/17: Growth us from [facility] reviewed- 76% (2192g) . See scanned documents. Emily Gutierrez MD 03/19/2017 Patient has a history of IUGR with her first . The baby's weight was 4 lbs. 13 oz. and was born term @ 38w2d. Her 2nd baby was born at 40w4d @ 6lb7oz. TKRN Family history of spina bifida 03/19/2017 0 12/10/2017 Overview: 03/19/2017 Pt's aunt was born with spina bifida. She at age 11 months. TKRN. TKRN Patient travels 03/19/2017 12/10/2017 Overview: 03/19/2017Patient travelled to [facility] in November 2016. Discussed Zika screening testing. Patient will talk more to Dr Melara about this at her appointment tommorrow. TKRN Patient requested diagnostic testing 03/19/2017 12/10/2017 Overview: 03/19/2017Patient considering nuchal ultrasound, but wants ultrasounds done at [facility]. Patient declines CF carrier screening testing Dorota CONWAY RN Abnormal glucose complicating 03/01/20 13 06/30/2013 Overview: Normal 3 hr GTT Supervision of other normal 01/10/2013 06/30/2013 Overview: Girl on us Hyperthyroidism in , antepartum 013 07/22/2019 Overview: No proven hyperthyroidism when not . Thyroid disease in 10/27/201209/2013 History of miscarriage, currently 10/2504/13/2013 Overview: 10/25/2012She has a history of irregular menses every 28-56 days. She has a history of a miscarriage August 2012. She denies any bleeding or pain this . Ultrasound ordered by Dr. Antonio @ [facility] per pt request. Order form given faxed to [facility]. for history of miscarriage and irregular menses. Dorota CONWAY RN MVP (mitral valve prolapse) 10/25/201206/05 Overview: 10/25/2012Pt states she was diagnosed with MVP in 2005 by a doctor in [place]. She states she does not take antibiotics prior to dental procedures. 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 Soriano. She states she took medication for 6 months, ending March 2012. Discussed history of hyperthyroidism with Dr. Marcanthony. Patient to have TSH, free T3, and T4 done today.Dorota Tello BSN RN Abnormality in heart r ate/rhythm, antepartum condition or complication 01/29/2011 03/21/2011 Hyperthyroidism in , antepartum 011 03/21/2011 Supervision of normal first 09/05/2010 03/21/2011 documented as of this encounter (statuses as of 05/13/2022) [facility] of Past illness Narrative* Problem Noted Date Resolved Date GBS carrier 10/12/2017 12/10/2017 H/O mitral valve disorder 03/19/20172017 Overview: 03/19/2017 Pt states she was diagnosed with MVP in 2005 by a doctor in [place]. She states she does not take antibiotics prior to dental procedures. TKRN History of prior with IUGR 12/10/2017 Overview: 09/11/17: Growth us from [facility] reviewed- 76% (2192g) . See scanned documents. Emily Gutierrez MD 03/19/2017 Patient has a history of IUGR with her first . The baby's weight was 4 lbs. 13 oz. and was born term @ 38w2d. Her 2nd baby was born at 40w4d @ 6lb7oz. TKRN Family history of spina bifida 03/19/2017 0 12/10/2017 Overview: 03/19/2017 Pt's aunt was born with spina bifida. She at age 11 months. TKRN. TKRN Patient travels 03/19/2017 12/10/2017 Overview: 03/19/2017Patient travelled to [facility] in November 2016. Discussed Zika screening testing. Patient will talk more to Dr Melara about this at her appointment tommorrow. TKRN Patient requested diagnostic testing 03/19/2017 12/10/2017 Overview: 03/19/2017Patient considering nuchal ultrasound, but wants ultrasounds done at [facility]. Patient declines CF carrier screening testing Dorota CONWAY RN Abnormal glucose complicating 03/01/20 13 06/30/2013 Overview: Normal 3 hr GTT Supervision of other normal 01/10/2013 06/30/2013 Overview: Girl on us Hyperthyroidism in , antepartum 013 07/22/2019 Overview: No proven hyperthyroidism when not . Thyroid disease in 10/27/201209/2013 History of miscarriage, currently 10/2504/13/2013 Overview: 10/25/2012She has a history of irregular menses every 28-56 days. She has a history of a miscarriage August 2012. She denies any bleeding or pain this . Ultrasound ordered by Dr. Antonio @ [facility] per pt request. Order form given faxed to [facility]. for history of miscarriage and irregular menses. Dorota CONWAY RN MVP (mitral valve prolapse) 10/25/201206/05 Overview: 10/25/2012Pt states she was diagnosed with MVP in 2005 by a doctor in [place]. She states she does not take antibiotics prior to dental procedures. 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 Soriano. She states she took medication for 6 months, ending March 2012. Discussed history of hyperthyroidism with Dr. Antonio. Patient to have TSH, free T3, and T4 done today.Dorota CONWAY RN Abnormality in heart r ate/rhythm, antepartum condition or complication 01/29/2011 03/21/2011 Hyperthyroidism in , antepartum 011 03/21/2011 Supervision of normal first 09/05/2010 03/21/2011 documented as of this encounter (statuses as of 05/13/2022) [facility] Past illness Narrative* Problem Noted Date Resolved Date GBS carrier 10/12/2017 12/10/2017 H/O mitral valve disorder 03/19/20172017 Overview: 03/19/2017 Pt states she was diagnosed with MVP in 2006 by a doctor in [place]. She states she does not take antibiotics prior to dental procedures. TKRN History of prior with IUGR 12/10/2017 Overview: 09/11/17: Growth us from [facility] reviewed- 76% (2192g) . See scanned documents. Emily Gutierrez MD 03/19/2017 Patient has a history of IUGR with her first . The baby's weight was 4 lbs. 13 oz. and was born term @ 38w2d. Her 2nd baby was born at 40w4d @ 6lb7oz. TKRN Family history of spina bifida 03/19/2017 0 12/10/2017 Overview: 03/19/2017 Pt's aunt was born with spina bifida. She at age 11 months. TKRN. TKRN Patient travels 03/19/2017 12/10/2017 Overview: 03/19/2017Patient travelled to [facility] in November 2016. Discussed Zika screening testing. Patient will talk more to Dr Melara about this at her appointment tommorrow. TKRN Patient requested diagnostic testing 03/19/2017 12/10/2017 Overview: 03/19/2017Patient considering nuchal ultrasound, but wants ultrasounds done at [facility]. Patient declines CF carrier screening testing Dorota CARREONN RN Abnormal glucose complicating 03/01/20 13 06/30/2013 Overview: Normal 3 hr GTT Supervision of other normal 01/10/2013 06/30/2013 Overview: Girl on us Hyperthyroidism in , antepartum 013 07/22/2019 Overview: No proven hyperthyroidism when not . Thyroid disease in 10/27/201209/2013 History of miscarriage, currently 10/2504/13/2013 Overview: 10/25/2012She has a history of irregular menses every 28-56 days. She has a history of a miscarriage August 2012. She denies any bleeding or pain this . Ultrasound ordered by Dr. Antonio @ [facility] per pt request. Order form given faxed to [facility]. for history of miscarriage and irregular menses. Dorota CONWAY RN MVP (mitral valve prolapse) 10/25/201206/05 Overview: 10/25/2012Pt states she was diagnosed with MVP in 2005 by a doctor in [place]. She states she does not take antibiotics prior to dental procedures. 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 Soriano. She states she took medication for 6 months, ending March 2012. Discussed history of hyperthyroidism with Dr. Antonio. Patient to have TSH, free T3, and T4 done today.Dorota CONWAY RN Abnormality in heart r ate/rhythm, antepartum condition or complication 01/29/2011 03/21/2011 Hyperthyroidism in , antepartum 011 03/21/2011 Supervision of normal first 09/05/2010 03/21/2011 documented as of this encounter (statuses as of 05/20/2022) [facility] illness Narrative* Problem Noted Date Resolved Date GBS carrier 10/12/2017 12/10/2017 H/O mitral valve disorder 03/19/20172017 Overview: 03/19/2017 Pt states she was diagnosed with MVP in 2005 by a doctor in [place]. She states she does not take antibiotics prior to dental procedures. TKRN History of prior with IUGR 12/10/2017 Overview: 09/11/17: Growth us from [facility] reviewed- 76% (2192g) . See scanned documents. Emily Gutierrez MD 03/19/2017 Patient has a history of IUGR with her first . The baby's weight was 4 lbs. 13 oz. and was born term @ 38w2d. Her 2nd baby was born at 40w4d @ 6lb7oz. TKRN Family history of spina bifida 03/19/2017 0 12/10/2017 Overview: 03/19/2017 Pt's aunt was born with spina bifida. She at age 11 months. TKRN. TKRN Patient travels 03/19/2017 12/10/2017 Overview: 03/19/2017Patient travelled to [facility] in November 2016. Discussed Zika screening testing. Patient will talk more to Dr Melara about this at her appointment tommorrow. TKRN Patient requested diagnostic testing 03/19/2017 12/10/2017 Overview: 03/19/2017Patient considering nuchal ultrasound, but wants ultrasounds done at [facility]. Patient declines CF carrier screening testing Dorota CARREONN RN Abnormal glucose complicating 03/01/20 13 06/30/2013 Overview: Normal 3 hr GTT Supervision of other normal 01/10/2013 06/30/2013 Overview: Girl on us Hyperthyroidism in , antepartum 013 07/22/2019 Overview: No proven hyperthyroidism when not . Thyroid disease in 10/27/201209/2013 History of miscarriage, currently 10/2504/13/2013 Overview: 10/25/2012She has a history of irregular menses every 28-56 days. She has a history of a miscarriage August 2012. She denies any bleeding or pain this . Ultrasound ordered by Dr. Antonio @ [facility] per pt request. Order form given faxed to [facility]. for history of miscarriage and irregular menses. Dorota CONWAY RN MVP (mitral valve prolapse) 10/25/201206/05 Overview: 10/25/2012Pt states she was diagnosed with MVP in 2005 by a doctor in [place]. She states she does not take antibiotics prior to dental procedures. 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 Soriano. She states she took medication for 6 months, ending March 2012. Discussed history of hyperthyroidism with Dr. Antonio. Patient to have TSH, free T3, and T4 done today.Dorota CONWAY RN Abnormality in heart r ate/rhythm, antepartum condition or complication 01/29/2011 03/21/2011 Hyperthyroidism in , antepartum 011 03/21/2011 Supervision of normal first 09/05/2010 03/21/2011 documented as of this encounter (statuses as of 06/02/2022) [facility] illness Narrative* Problem Noted Date Resolved Date GBS carrier 10/12/2017 12/10/2017 H/O mitral valve disorder 03/19/20172017 Overview: 03/19/2017 Pt states she was diagnosed with MVP in 2005 by a doctor in [place]. She states she does not take antibiotics prior to dental procedures. TKRN History of prior with IUGR 12/10/2017 Overview: 09/11/17: Growth us from [facility] reviewed- 76% (2192g) . See scanned documents. Emily Gutierrez MD 03/19/2017 Patient has a history of IUGR with her first . The baby's weight was 4 lbs. 13 oz. and was born term @ 38w2d. Her 2nd baby was born at 40w4d @ 6lb7oz. TKRN Family history of spina bifida 03/19/2017 0 12/10/2017 Overview: 03/19/2017 Pt's aunt was born with spina bifida. She at age 11 months. TKRN. TKRN Patient travels 03/19/2017 12/10/2017 Overview: 03/19/2017Patient travelled to [facility] in November 2016. Discussed Zika screening testing. Patient will talk more to Dr Melara about this at her appointment tommorrow. TKRN Patient requested diagnostic testing 03/19/2017 12/10/2017 Overview: 03/19/2017Patient considering nuchal ultrasound, but wants ultrasounds done at [facility]. Patient declines CF carrier screening testing Dorota CONWAY RN Abnormal glucose complicating 03/01/20 13 06/30/2013 Overview: Normal 3 hr GTT Supervision of other normal 01/10/2013 06/30/2013 Overview: Girl on us Hyperthyroidism in , antepartum 013 07/22/2019 Overview: No proven hyperthyroidism when not . Thyroid disease in 10/27/201209/2013 History of miscarriage, currently 10/2504/13/2013 Overview: 10/25/2012She has a history of irregular menses every 28-56 days. She has a history of a miscarriage August 2012. She denies any bleeding or pain this . Ultrasound ordered by Dr. Antonio @ [facility] per pt request. Order form given faxed to [facility]. for history of miscarriage and irregular menses. Dorota CONWAY RN MVP (mitral valve prolapse) 10/25/201206/05 Overview: 10/25/2012Pt states she was diagnosed with MVP in 2005 by a doctor in [place]. She states she does not take antibiotics prior to dental procedures. Dorota CARREONN RN Toxic diffuse goiter without mention of thyrotoxic crisis or storm 04/02/2011 10/27/2012 Overview: 10/25/2012 Patient was diagnosed with hyperthyroidism during her last by Dr. Soriano. She states she took medication for 6 months, ending March 2012. Discussed history of hyperthyroidism with Dr. Antonio. Patient to have TSH, free T3, and T4 done today.Dorota CARREONN RN Abnormality in heart r ate/rhythm, antepartum condition or complication 01/29/2011 03/21/2011 Hyperthyroidism in , antepartum 011 03/21/2011 Supervision of normal first 09/05/2010 03/21/2011 documented as of this encounter (statuses as of 06/11/2022) [facility] illness Narrative* Problem Noted Date Resolved Date GBS carrier 10/12/2017 12/10/2017 H/O mitral valve disorder 03/19/20172017 Overview: 03/19/2017 Pt states she was diagnosed with MVP in 2005 by a doctor in [place]. She states she does not take antibiotics prior to dental procedures. TKRN History of prior with IUGR 12/10/2017 Overview: 09/11/17: Growth us from [facility] reviewed- 76% (2192g) . See scanned documents. Emily Gutierrez MD 03/19/2017 Patient has a history of IUGR with her first . The baby's weight was 4 lbs. 13 oz. and was born term @ 38w2d. Her 2nd baby was born at 40w4d @ 6lb7oz. TKRN Family history of spina bifida 03/19/2017 0 12/10/2017 Overview: 03/19/2017 Pt's aunt was born with spina bifida. She at age 11 months. TKRN. TKRN Patient travels 03/19/2017 12/10/2017 Overview: 03/19/2017Patient travelled to [facility] in November 2016. Discussed Zika screening testing. Patient will talk more to Dr Melara about this at her appointment tommorrow. TKRN Patient requested diagnostic testing 03/19/2017 12/10/2017 Overview: 03/19/2017Patient considering nuchal ultrasound, but wants ultrasounds done at [facility]. Patient declines CF carrier screening testing Dorota CONWAY RN Abnormal glucose complicating 03/01/20 13 06/30/2013 Overview: Normal 3 hr GTT Supervision of other normal 01/10/2013 06/30/2013 Overview: Girl on us Hyperthyroidism in , antepartum 013 07/22/2019 Overview: No proven hyperthyroidism when not . Thyroid disease in 10/27/201209/2013 History of miscarriage, currently 10/2504/13/2013 Overview: 10/25/2012She has a history of irregular menses every 28-56 days. She has a history of a miscarriage August 2012. She denies any bleeding or pain this . Ultrasound ordered by Dr. Antonio @ [facility] per pt request. Order form given faxed to [facility]. for history of miscarriage and irregular menses. Dorota CONWAY RN MVP (mitral valve prolapse) 10/25/201206/05 Overview: 10/25/2012Pt states she was diagnosed with MVP in 2005 by a doctor in [place]. She states she does not take antibiotics prior to dental procedures. 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 Soriano. She states she took medication for 6 months, ending March 2012. Discussed history of hyperthyroidism with Dr. Antonio. Patient to have TSH, free T3, and T4 done today.Dorota CONWAY RN Abnormality in heart r ate/rhythm, antepartum condition or complication 01/29/2011 03/21/2011 Hyperthyroidism in , antepartum 011 03/21/2011 Supervision of normal first 09/05/2010 03/21/2011 documented as of this encounter (statuses as of 07/08/2022) [facility]06-11-2018 History of Past illness Narrative* Problem Noted Date Resolved Date GBS carrier 10/12/2017 12/10/2017 H/O mitral valve disorder 03/19/20172017 Overview: 03/19/2017 Pt states she was diagnosed with MVP in 2005 by a doctor in [place]. She states she does not take antibiotics prior to dental procedures. TKRN History of prior with IUGR 12/10/2017 Overview: 09/11/17: Growth us from [facility] reviewed- 76% (2192g) . See scanned documents. Emily Gutierrez MD 03/19/2017 Patient has a history of IUGR with her first . The baby's weight was 4 lbs. 13 oz. and was born term @ 38w2d. Her 2nd baby was born at 40w4d @ 6lb7oz. TKRN Family history of spina bifida 03/19/2017 0 12/10/2017 Overview: 03/19/2017 Pt's aunt was born with spina bifida. She at age 11 months. TKRN. TKRN Patient travels 03/19/2017 12/10/2017 Overview: 03/19/2017Patient travelled to [facility] in November 2016. Discussed Zika screening testing. Patient will talk more to Dr Melara about this at her appointment tommorrow. TKRN Patient requested diagnostic testing 03/19/2017 12/10/2017 Overview: 03/19/2017Patient considering nuchal ultrasound, but wants ultrasounds done at [facility]. Patient declines CF carrier screening testing Dorota Tello BSN RN Abnormal glucose complicating 03/01/20 13 06/30/2013 Overview: Normal 3 hr GTT Supervision of other normal 01/10/2013 06/30/2013 Overview: Girl on us Hyperthyroidism in , antepartum 013 07/22/2019 Overview: No proven hyperthyroidism when not . Thyroid disease in 10/27/201209/2013 History of miscarriage, currently 10/2504/13/2013 Overview: 10/25/2012She has a history of irregular menses every 28-56 days. She has a history of a miscarriage August 2012. She denies any bleeding or pain this . Ultrasound ordered by Dr. Antonio @ [facility] per pt request. Order form given faxed to [facility]. for history of miscarriage and irregular menses. Dorota CONWAY RN MVP (mitral valve prolapse) 10/25/201206/05 Overview: 10/25/2012Pt states she was diagnosed with MVP in 2005 by a doctor in [place]. She states she does not take antibiotics prior to dental procedures. 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 Soriano. She states she took medication for 6 months, ending March 2012. Discussed history of hyperthyroidism with Dr. Antonio. Patient to have TSH, free T3, and T4 done today.Dorota CONWAY RN Abnormality in heart r ate/rhythm, antepartum condition or complication 01/29/2011 03/21/2011 Hyperthyroidism in , antepartum 011 03/21/2011 Supervision of normal first 09/05/2010 03/21/2011 documented as of this encounter (statuses as of 08/08/2022) [facility]06-[facility]2018 History of Past illness Narrative* Problem Noted Date Resolved Date GBS carrier 10/12/2017 12/10/2017 H/O mitral valve disorder 03/19/20172017 Overview: 03/19/2017 Pt states she was diagnosed with MVP in 2005 by a doctor in [place]. She states she does not take antibiotics prior to dental procedures. TKRN History of prior with IUGR 12/10/2017 Overview: 09/11/17: Growth us from [facility] reviewed- 76% (2192g) . See scanned documents. Emily Gutierrez MD 03/19/2017 Patient has a history of IUGR with her first . The baby's weight was 4 lbs. 13 oz. and was born term @ 38w2d. Her 2nd baby was born at 40w4d @ 6lb7oz. TKRN Family history of spina bifida 03/19/2017 0 12/10/2017 Overview: 03/19/2017 Pt's aunt was born with spina bifida. She at age 11 months. TKRN. TKRN Patient travels 03/19/2017 12/10/2017 Overview: 03/19/2017Patient travelled to [facility] in November 2016. Discussed Zika screening testing. Patient will talk more to Dr Melara about this at her appointment tommorrow. TKRN Patient requested diagnostic testing 03/19/2017 12/10/2017 Overview: 03/19/2017Patient considering nuchal ultrasound, but wants ultrasounds done at [facility]. Patient declines CF carrier screening testing Dorota CARREONN RN Abnormal glucose complicating 03/01/20 13 06/30/2013 Overview: Normal 3 hr GTT Supervision of other normal 01/10/2013 06/30/2013 Overview: Girl on us Hyperthyroidism in , antepartum 013 07/22/2019 Overview: No proven hyperthyroidism when not . Thyroid disease in 10/27/201209/2013 History of miscarriage, currently 10/2504/13/2013 Overview: 10/25/2012She has a history of irregular menses every 28-56 days. She has a history of a miscarriage August 2012. She denies any bleeding or pain this . Ultrasound ordered by Dr. Antonio @ [facility] per pt request. Order form given faxed to [facility]. for history of miscarriage and irregular menses. Dorota CONWAY RN MVP (mitral valve prolapse) 10/25/201206/05 Overview: 10/25/2012Pt states she was diagnosed with MVP in 2005 by a doctor in [place]. She states she does not take antibiotics prior to dental procedures. 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 Soriano. She states she took medication for 6 months, ending March 2012. Discussed history of hyperthyroidism with Dr. nAtonio. Patient to have TSH, free T3, and T4 done today.Dorota CONWAY RN Abnormality in heart r ate/rhythm, antepartum condition or complication 01/29/2011 03/21/2011 Hyperthyroidism in , antepartum 011 03/21/2011 Supervision of normal first 09/05/2010 03/21/2011 documented as of this encounter (statuses as of 08/27/2022) [facility] History of Past illness Narrative* Problem Noted Date Resolved Date GBS carrier 10/12/2017 12/10/2017 H/O mitral valve disorder 03/19/20172017 Overview: 03/19/2017 Pt states she was diagnosed with MVP in 2005 by a doctor in [place]. She states she does not take antibiotics prior to dental procedures. TKRN History of prior with IUGR 12/10/2017 Overview: 5/11/18: Growth us from [facility] reviewed- 76% (2192g) . See scanned documents. Emily Gutierrez MD 03/19/2017 Patient has a history of IUGR with her first . The baby's weight was 4 lbs. 13 oz. and was born term @ 38w2d. Her 2nd baby was born at 40w4d @ 6lb7oz. TKRN Family history of spina bifida 03/19/2017 0 12/10/2017 Overview: 03/19/2017 Pt's aunt was born with spina bifida. She at age 11 months. TKRN. TKRN Patient travels 03/19/2017 12/10/2017 Overview: 03/19/2017Patient travelled to [facility] in November 2016. Discussed Zika screening testing. Patient will talk more to Dr Melara about this at her appointment tommorrow. TKRN Patient requested diagnostic testing 03/19/2017 12/10/2017 Overview: 03/19/2017Patient considering nuchal ultrasound, but wants ultrasounds done at [facility]. Patient declines CF carrier screening testing Dorota CONWAY RN Abnormal glucose complicating 03/01/20 13 06/30/2013 Overview: Normal 3 hr GTT Supervision of other normal 01/10/2013 06/30/2013 Overview: Girl on us Hyperthyroidism in , antepartum 013 07/22/2019 Overview: No proven hyperthyroidism when not . Thyroid disease in 10/27/201209/2013 History of miscarriage, currently 10/2504/13/2013 Overview: 10/25/2012She has a history of irregular menses every 28-56 days. She has a history of a miscarriage August 2012. She denies any bleeding or pain this . Ultrasound ordered by Dr. Antonio @ [facility] per pt request. Order form given faxed to [facility]. for history of miscarriage and irregular menses. Dorota CONWAY RN MVP (mitral valve prolapse) 10/25/201206/05 Overview: 10/25/2012Pt states she was diagnosed with MVP in 2005 by a doctor in [place]. She states she does not take antibiotics prior to dental procedures. 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 Soriano. She states she took medication for 6 months, ending March 2012. Discussed history of hyperthyroidism with Dr. Antonio. Patient to have TSH, free T3, and T4 done today.Dorota CONWAY RN Abnormality in heart r ate/rhythm, antepartum condition or complication 01/29/2011 03/21/2011 Hyperthyroidism in , antepartum 011 03/21/2011 Supervision of normal first 09/05/2010 03/21/2011 documented as of this encounter (statuses as of 08/28/2022) [facility] History of Past illness Narrative* Problem Noted Date Resolved Date GBS carrier 10/12/2017 12/10/2017 H/O mitral valve disorder 03/19/20172017 Overview: 03/19/2017 Pt states she was diagnosed with MVP in 2005 by a doctor in [place]. She states she does not take antibiotics prior to dental procedures. TKRN History of prior with IUGR 12/10/2017 Overview: 09/11/17: Growth us from [facility] reviewed- 76% (2192g) . See scanned documents. Emily Gutierrez MD 03/19/2017 Patient has a history of IUGR with her first . The baby's weight was 4 lbs. 13 oz. and was born term @ 38w2d. Her 2nd baby was born at 40w4d @ 6lb7oz. TKRN Family history of spina bifida 03/19/2017 0 12/10/2017 Overview: 03/19/2017 Pt's aunt was born with spina bifida. She at age 11 months. TKRN. TKRN Patient travels 03/19/2017 12/10/2017 Overview: 03/19/2017Patient travelled to [facility] in November 2016. Discussed Zika screening testing. Patient will talk more to Dr Melara about this at her appointment tommorrow. TKRN Patient requested diagnostic testing 03/19/2017 12/10/2017 Overview: 03/19/2017Patient considering nuchal ultrasound, but wants ultrasounds done at [facility]. Patient declines CF carrier screening testing Dorota CONWAY RN Abnormal glucose complicating 03/01/20 13 06/30/2013 Overview: Normal 3 hr GTT Supervision of other normal 01/10/2013 06/30/2013 Overview: Girl on us Hyperthyroidism in , antepartum 013 07/22/2019 Overview: No proven hyperthyroidism when not . Thyroid disease in 10/27/201209/2013 History of miscarriage, currently 10/2504/13/2013 Overview: 10/25/2012She has a history of irregular menses every 28-56 days. She has a history of a miscarriage August 2012. She denies any bleeding or pain this . Ultrasound ordered by Dr. Antonio @ [facility] per pt request. Order form given faxed to [facility]. for history of miscarriage and irregular menses. Dorota CONWAY RN MVP (mitral valve prolapse) 10/25/201206/05 Overview: 10/25/2012Pt states she was diagnosed with MVP in 2005 by a doctor in [place]. She states she does not take antibiotics prior to dental procedures. Dorota Tello BSN RN Toxic diffuse goiter without mention of thyrotoxic crisis or storm 04/02/2011 10/27/2012 Overview: 10/25/2012 Patient was diagnosed with hyperthyroidism during her last by Dr. Soriano. She states she took medication for 6 months, ending March 2012. Discussed history of hyperthyroidism with Dr. Antonio. Patient to have TSH, free T3, and T4 done today.Dorota CARREONN RN Abnormality in heart r ate/rhythm, antepartum condition or complication 01/29/2011 03/21/2011 Hyperthyroidism in , antepartum 011 03/21/2011 Supervision of normal first 09/05/2010 03/21/2011 documented as of this encounter (statuses as of 09/03/2022) [facility] History of Past illness Narrative* Problem Noted Date Resolved Date GBS carrier 10/12/2017 12/10/2017 H/O mitral valve disorder 03/19/20172017 Overview: 03/19/2017 Pt states she was diagnosed with MVP in 2005 by a doctor in [place]. She states she does not take antibiotics prior to dental procedures. TKRN History of prior with IUGR 12/10/2017 Overview: 09/11/17: Growth us from [facility] reviewed- 76% (2192g) . See scanned documents. Emily Gutierrez MD 03/19/2017 Patient has a history of IUGR with her first . The baby's weight was 4 lbs. 13 oz. and was born term @ 38w2d. Her 2nd baby was born at 40w4d @ 6lb7oz. TKRN Family history of spina bifida 03/19/2017 0 12/10/2017 Overview: 03/19/2017 Pt's aunt was born with spina bifida. She at age 11 months. TKRN. TKRN Patient travels 03/19/2017 12/10/2017 Overview: 03/19/2017Patient travelled to [facility] in November 2016. Discussed Zika screening testing. Patient will talk more to Dr Melara about this at her appointment tommorrow. TKRN Patient requested diagnostic testing 03/19/2017 12/10/2017 Overview: 03/19/2017Patient considering nuchal ultrasound, but wants ultrasounds done at [facility]. Patient declines CF carrier screening testing Dorota CONWAY RN Abnormal glucose complicating 03/01/20 13 06/30/2013 Overview: Normal 3 hr GTT Supervision of other normal 01/10/2013 06/30/2013 Overview: Girl on us Hyperthyroidism in , antepartum 013 07/22/2019 Overview: No proven hyperthyroidism when not . Thyroid disease in 10/27/201209/2013 History of miscarriage, currently 10/2504/13/2013 Overview: 10/25/2012She has a history of irregular menses every 28-56 days. She has a history of a miscarriage August 2012. She denies any bleeding or pain this . Ultrasound ordered by Dr. Antonio @ [facility] per pt request. Order form given faxed to [facility]. for history of miscarriage and irregular menses. Dorota CONWAY RN MVP (mitral valve prolapse) 10/25/201206/05 Overview: 10/25/2012Pt states she was diagnosed with MVP in 2005 by a doctor in [place]. She states she does not take antibiotics prior to dental procedures. 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 Soriano. She states she took medication for 6 months, ending March 2012. Discussed history of hyperthyroidism with Dr. Antonio. Patient to have TSH, free T3, and T4 done today.Dorota Tello BSN RN Abnormality in heart r ate/rhythm, antepartum condition or complication 01/29/2011 03/21/2011 Hyperthyroidism in , antepartum 011 03/21/2011 Supervision of normal first 09/05/2010 03/21/2011 documented as of this encounter (statuses as of 10/01/2022) [facility] History of Past illness Narrative* Problem Noted Date Resolved Date GBS carrier 10/12/2017 12/10/2017 H/O mitral valve disorder 03/19/20172017 Overview: 03/19/2017 Pt states she was diagnosed with MVP in 2005 by a doctor in [place]. She states she does not take antibiotics prior to dental procedures. TKRN History of prior with IUGR 12/10/2017 Overview: 09/11/17: Growth us from [facility] reviewed- 76% (2192g) . See scanned documents. Emily Gutierrez MD 03/19/2017 Patient has a history of IUGR with her first . The baby's weight was 4 lbs. 13 oz. and was born term @ 38w2d. Her 2nd baby was born at 40w4d @ 6lb7oz. TKRN Family history of spina bifida 03/19/2017 0 12/10/2017 Overview: 03/19/2017 Pt's aunt was born with spina bifida. She at age 11 months. TKRN. TKRN Patient travels 03/19/2017 12/10/2017 Overview: 03/19/2017Patient travelled to [facility] in November 2016. Discussed Zika screening testing. Patient will talk more to Dr Melara about this at her appointment tommorrow. TKRN Patient requested diagnostic testing 03/19/2017 12/10/2017 Overview: 03/19/2017Patient considering nuchal ultrasound, but wants ultrasounds done at [facility]. Patient declines CF carrier screening testing Dorota CONWAY RN Abnormal glucose complicating 03/01/20 13 06/30/2013 Overview: Normal 3 hr GTT Supervision of other normal 01/10/2013 06/30/2013 Overview: Girl on us Hyperthyroidism in , antepartum 013 07/22/2019 Overview: No proven hyperthyroidism when not . Thyroid disease in 10/27/201209/2013 History of miscarriage, currently 10/2504/13/2013 Overview: 10/25/2012She has a history of irregular menses every 28-56 days. She has a history of a miscarriage August 2012. She denies any bleeding or pain this . Ultrasound ordered by Dr. Antonio @ [facility] per pt request. Order form given faxed to [facility]. for history of miscarriage and irregular menses. Dorota CONWAY RN MVP (mitral valve prolapse) 10/25/201206/05 Overview: 10/25/2012Pt states she was diagnosed with MVP in 2005 by a doctor in [place]. She states she does not take antibiotics prior to dental procedures. 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 Soriano. She states she took medication for 6 months, ending March 2012. Discussed history of hyperthyroidism with Dr. Antonio. Patient to have TSH, free T3, and T4 done today.Dorota CONWAY RN Abnormality in heart r ate/rhythm, antepartum condition or complication 01/29/2011 03/21/2011 Hyperthyroidism in , antepartum 011 03/21/2011 Supervision of normal first 09/05/2010 03/21/2011 documented as of this encounter (statuses as of 10/16/2022) [facility] History of Past illness Narrative* Problem Noted Date Resolved Date GBS carrier 10/12/2017 12/10/2017 H/O mitral valve disorder 03/19/20172017 Overview: 03/19/2017 Pt states she was diagnosed with MVP in 2005 by a doctor in [place]. She states she does not take antibiotics prior to dental procedures. TKRN History of prior with IUGR 12/10/2017 Overview: 09/11/17: Growth us from [facility] reviewed- 76% (2192g) . See scanned documents. Emily Gutierrez MD 03/19/2017 Patient has a history of IUGR with her first . The baby's weight was 4 lbs. 13 oz. and was born term @ 38w2d. Her 2nd baby was born at 40w4d @ 6lb7oz. TKRN Family history of spina bifida 03/19/2017 0 12/10/2017 Overview: 03/19/2017 Pt's aunt was born with spina bifida. She at age 11 months. TKRN. TKRN Patient travels 03/19/2017 12/10/2017 Overview: 03/19/2017Patient travelled to [facility] in November 2016. Discussed Zika screening testing. Patient will talk more to Dr Melara about this at her appointment tommorrow. TKRN Patient requested diagnostic testing 03/19/2017 12/10/2017 Overview: 03/19/2017Patient considering nuchal ultrasound, but wants ultrasounds done at [facility]. Patient declines CF carrier screening testing Dorota CARREONN RN Abnormal glucose complicating 03/01/20 13 06/30/2013 Overview: Normal 3 hr GTT Supervision of other normal 01/10/2013 06/30/2013 Overview: Girl on us Hyperthyroidism in , antepartum 013 07/22/2019 Overview: No proven hyperthyroidism when not . Thyroid disease in 10/27/201209/2013 History of miscarriage, currently 10/2504/13/2013 Overview: 10/25/2012She has a history of irregular menses every 28-56 days. She has a history of a miscarriage August 2012. She denies any bleeding or pain this . Ultrasound ordered by Dr. Antonio @ [facility] per pt request. Order form given faxed to [facility]. for history of miscarriage and irregular menses. Dorota CONWAY RN MVP (mitral valve prolapse) 10/25/201206/05 Overview: 10/25/2012Pt states she was diagnosed with MVP in 2005 by a doctor in [place]. She states she does not take antibiotics prior to dental procedures. 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 Soriano. She states she took medication for 6 months, ending March 2012. Discussed history of hyperthyroidism with Dr. Antonio. Patient to have TSH, free T3, and T4 done today.Dorota CONWAY RN Abnormality in heart r ate/rhythm, antepartum condition or complication 01/29/2011 03/21/2011 Hyperthyroidism in , antepartum 011 03/21/2011 Supervision of normal first 09/05/2010 03/21/2011 documented as of this encounter (statuses as of 11/06/2022) [facility] History of Past illness Narrative* Problem Noted Date Diagnosed Date Resolved Date GBS carrier 10/12/2017 12/10/2017 H/O mitral valve disorder 03/19/2017 Overview: 03/19/2017 Pt states she was diagnosed with MVP in 2005 by a doctor in [place]. She states she does not take antibiotics prior to dental procedures. TKRN History of prior with IUGR 7 12/10/2017 Overview: 09/11/17: Growth us from [facility] reviewed- 76% (2192g) . See scanned documents. Emily Gutierrez MD 03/19/2017 Patient has a history of IUGR with her first . The baby's weight was 4 lbs. 13 oz. and was born term @ 38w2d. Her 2nd baby was born at 40w4d @ 6lb7oz. TKRN Family history of spina bifida 03/19/2017 12/10/2017 Overview: 03/19/2017 Pt's aunt was born with spina bifida. She at age 11 months. TKRN. TKRN Patient travels 03/19/2017 12/10/2017 Overview: 03/19/2017Patient travelled to [facility] in November 2016. Discussed Zika screening testing. Patient will talk more to Dr Melara about this at her appointment tommorrow. TKRN Patient requested diagnostic testing 03/19/2017 12/10/2017 Overview: 03/19/2017Patient considering nuchal ultrasound, but wants ultrasounds done at [facility]. Patient declines CF carrier screening testing Dorota CONWAY RN Abnormal glucose complicating 03/01/2013 06/30/2013 Overview: Normal 3 hr GTT Supervision of other normal 01/10/2013 06/30/2013 Overview: Girl on us Hyperthyroidism in , antepartum 10/27/2012 07/22/2019 Overview: No proven hyperthyroidism when not . Thyroid disease in 10/27/2012 07/06/2013 History of miscarriage, currently 10/25/2012 04/13/2013 Overview: 10/25/2012She has a history of irregular menses every 28-56 days. She has a history of a miscarriage August 2012. She denies any bleeding or pain this . Ultrasound ordered by Dr. Antonio @ [facility] per pt request. Order form given faxed to [facility]. for history of miscarriage and irregular menses. Dorota CONWAY RN MVP (mitral valve prolapse) 10/25/2012 06/30/2013 Overview: 10/25/2012Pt states she was diagnosed with MVP in 2005 by a doctor in [place]. She states she does not take antibiotics prior to dental procedures. 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 Soriano. She states she took medication for 6 months, ending March 2012. Discussed history of hyperthyroidism with Dr. Antonio. Patient to have TSH, free T3, and T4 done today.Dorota CONWAY RN Abnormality in heart r ate/rhythm, antepartum condition or complication 01/29/2011 Hyperthyroidism in , antepartum 11/27/2010 03/21/2011 Supervision of normal first 09/05/2010 03/21/2011 documented as of this encounter (statuses as of 11/11/2022) [facility] History of Past illness Narrative* Problem Noted Date Diagnosed Date Resolved Date GBS carrier 10/12/2017 12/10/2017 H/O mitral valve disorder 03/19/2017 Overview: 03/19/2017 Pt states she was diagnosed with MVP in 2005 by a doctor in [place]. She states she does not take antibiotics prior to dental procedures. TKRN History of prior with IUGR 7 12/10/2017 Overview: 09/11/17: Growth us from [facility] reviewed- 76% (2192g) . See scanned documents. Emily Gutierrez MD 03/19/2017 Patient has a history of IUGR with her first . The baby's weight was 4 lbs. 13 oz. and was born term @ 38w2d. Her 2nd baby was born at 40w4d @ 6lb7oz. TKRN Family history of spina bifida 03/19/2017 12/10/2017 Overview: 03/19/2017 Pt's aunt was born with spina bifida. She at age 11 months. TKRN. TKRN Patient travels 03/19/2017 12/10/2017 Overview: 03/19/2017Patient travelled to [facility] in November 2016. Discussed Zika screening testing. Patient will talk more to Dr Melara about this at her appointment tommorrow. TKRN Patient requested diagnostic testing 03/19/2017 12/10/2017 Overview: 03/19/2017Patient considering nuchal ultrasound, but wants ultrasounds done at [facility]. Patient declines CF carrier screening testing Dorota CONWAY RN Abnormal glucose complicating 03/01/2013 06/30/2013 Overview: Normal 3 hr GTT Supervision of other normal 01/10/2013 06/30/2013 Overview: Girl on us Hyperthyroidism in , antepartum 10/27/2012 07/22/2019 Overview: No proven hyperthyroidism when not . Thyroid disease in 10/27/2012 07/06/2013 History of miscarriage, currently 10/25/2012 04/13/2013 Overview: 10/25/2012She has a history of irregular menses every 28-56 days. She has a history of a miscarriage August 2012. She denies any bleeding or pain this . Ultrasound ordered by Dr. Antonio @ [facility] per pt request. Order form given faxed to [facility]. for history of miscarriage and irregular menses. Dorota CONWAY RN MVP (mitral valve prolapse) 10/25/2012 06/30/2013 Overview: 10/25/2012Pt states she was diagnosed with MVP in 2005 by a doctor in [place]. She states she does not take antibiotics prior to dental procedures. 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 Soriano. She states she took medication for 6 months, ending March 2012. Discussed history of hyperthyroidism with Dr. Antonio. 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 She states she does not take antibiotics prior to dental procedures. TKRN History of prior with IUGR 7 12/10/2017 Overview: 09/11/17: Growth us from [facility] reviewed- 76% (2192g) . See scanned documents. Emily Gutierrez MD 03/19/2017 Patient has a history of IUGR with her first . The baby's weight was 4 lbs. 13 oz. and was born term @ 38w2d. Her 2nd baby was born at 40w4d @ 6lb7oz. TKRN Family history of spina bifida 03/19/2017 12/10/2017 Overview: 03/19/2017 Pt's aunt was born with spina bifida. She at age 11 months. TKRN. TKRN Patient travels 03/19/2017 12/10/2017 Overview: 03/19/2017Patient travelled to [facility] in November 2016. Discussed Zika screening testing. Patient will talk more to Dr Melara about this at her appointment tommorrow. TKRN Patient requested diagnostic testing 03/19/2017 12/10/2017 Overview: 03/19/2017Patient considering nuchal ultrasound, but wants ultrasounds done at [facility]. Patient declines CF carrier screening testing Dorota CONWAY RN Abnormal glucose complicating 03/01/2013 06/30/2013 Overview: Normal 3 hr GTT Supervision of other normal 01/10/2013 06/30/2013 Overview: Girl on us Hyperthyroidism in , antepartum 10/27/2012 07/22/2019 Overview: No proven hyperthyroidism when not . Thyroid disease in 10/27/2012 07/06/2013 History of miscarriage, currently 10/25/2012 04/13/2013 Overview: 10/25/2012She has a history of irregular menses every 28-56 days. She has a history of a miscarriage August 2012. She denies any bleeding or pain this . Ultrasound ordered by Dr. Antonio @ [facility] per pt request. Order form given faxed to [facility]. for history of miscarriage and irregular menses. Dorota CONWAY RN MVP (mitral valve prolapse) 10/25/2012 06/30/2013 Overview: 10/25/2012Pt states she was diagnosed with MVP in 2005 by a doctor in [place]. She states she does not take antibiotics prior to dental procedures. 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 Soriano. She states she took medication for 6 months, ending March 2012. Discussed history of hyperthyroidism with Dr. Antonio. Patient to have TSH, free T3, and T4 done today.Dorota CONWAY RN Abnormality in heart r ate/rhythm, antepartum condition or complication 01/29/2011 Hyperthyroidism in , antepartum 11/27/2010 03/21/2011 Supervision of normal first 09/05/2010 03/21/2011 documented as of this encounter (statuses as of 11/24/2022) [facility] History of Past illness Narrative* Problem Noted Date Diagnosed Date Resolved Date GBS carrier 10/12/2017 12/10/2017 H/O mitral valve disorder 03/19/2017 Overview: 03/19/2017 Pt states she was diagnosed with MVP in 2005 by a doctor in [place]. She states she does not take antibiotics prior to dental procedures. TKRN History of prior with IUGR 7 12/10/2017 Overview: 09/11/17: Growth us from [facility] reviewed- 76% (2192g) . See scanned documents. Emily Gutierrez MD 03/19/2017 Patient has a history of IUGR with her first . The baby's weight was 4 lbs. 13 oz. and was born term @ 38w2d. Her 2nd baby was born at 40w4d @ 6lb7oz. TKRN Family history of spina bifida 03/19/2017 12/10/2017 Overview: 03/19/2017 Pt's aunt was born with spina bifida. She at age 11 months. TKRN. TKRN Patient travels 03/19/2017 12/10/2017 Overview: 03/19/2017Patient travelled to [facility] in November 2016. Discussed Zika screening testing. Patient will talk more to Dr Melara about this at her appointment tommorrow. TKRN Patient requested diagnostic testing 03/19/2017 12/10/2017 Overview: 03/19/2017Patient considering nuchal ultrasound, but wants ultrasounds done at [facility]. Patient declines CF carrier screening testing Dorota CARREONN RN Abnormal glucose complicating 03/01/2013 06/30/2013 Overview: Normal 3 hr GTT Supervision of other normal 01/10/2013 06/30/2013 Overview: Girl on us Hyperthyroidism in , antepartum 10/27/2012 07/22/2019 Overview: No proven hyperthyroidism when not . Thyroid disease in 10/27/2012 07/06/2013 History of miscarriage, currently 10/25/2012 04/13/2013 Overview: 10/25/2012She has a history of irregular menses every 28-56 days. She has a history of a miscarriage August 2012. She denies any bleeding or pain this . Ultrasound ordered by Dr. Antonio @ [facility] per pt request. Order form given faxed to [facility]. for history of miscarriage and irregular menses. Dorota CONWAY RN MVP (mitral valve prolapse) 10/25/2012 06/30/2013 Overview: 10/25/2012Pt states she was diagnosed with MVP in 2005 by a doctor in [place]. She states she does not take antibiotics prior to dental procedures. 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 Soriano. She states she took medication for 6 months, ending March 2012. Discussed history of hyperthyroidism with Dr. Antonio. Patient to have TSH, free T3, and T4 done today.Dorota CONWAY RN Abnormality in heart r ate/rhythm, antepartum condition or complication 01/29/2011 Hyperthyroidism in , antepartum 11/27/2010 03/21/2011 Supervision of normal first 09/05/2010 03/21/2011 documented as of this encounter (statuses as of 11/28/2022) [facility] Diagnosis with uncertain date of last menstrual period in first trimester, antepartum- Primary High risk multigravida in first trimester Encounter for screening of mother Unspecified screening Advanced maternal age in multigravida, first trimester [facility] Diagnosis with uncertain date of last menstrual period in first trimester, antepartum- Primary High risk multigravida in first trimester Advanced maternal age in multigravida, first trimester [facility] [place] [facility]* Diagnosis Encounter for (NT) nuchal translucency scan- Primary Other specified screening with uncertain date of last menstrual period in first trimester, antepartum High risk multigravida in first trimester 11 weeks gestation of state, incidental [facility] [place] [facility]* Diagnosis 15 weeks gestation of - Primary state, incidental AMA (advanced maternal age) multigravida 35+, second trimester [facility] [place] [facility]* Diagnosis 19 weeks gestation of - Primary state, incidental AMA (advanced maternal age) multigravida 35+, second trimester [facility] [place] [facility]* Diagnosis AMA (advanced maternal age) multigravida 35+, second trimester- Primary 24 weeks gestation of state, incidental [facility] [place] [facility]* Diagnosis 28 weeks gestation of - Primary state, incidental [facility] [place] [facility]* Diagnosis 32 weeks gestation of - Primary state, incidental IUGR (intrauterine growth restriction) in prior , with other poor obstetric history AMA (advanced maternal age) multigravida 35+, third trimester [facility] [place] [facility]* Diagnosis Need for vaccination- Primary Need for prophylactic vaccination and inoculation against unspecified single disease 34 weeks gestation of state, incidental AMA (advanced maternal age) multigravida 35+, third trimester [facility] [place] [facility]* Diagnosis 37 weeks gestation of - Primary state, incidental [facility] [place] [facility]* Diagnosis AMA (advanced maternal age) multigravida 35+, third trimester- Primary 37 weeks gestation of state, incidental High-risk in third trimester [facility]* Diagnosis AMA (advanced maternal age) multigravida 35+, third trimester- Primary High-risk in third trimester History of placenta abruption Personal history of other genital system and obstetric disorders Positive GBS test Elevated blood pressure affecting in third trimester, antepartum 39 weeks gestation of state, incidental [facility] [place] [facility]* Diagnosis care and examination- Primary Routine follow-up documented in this encounter [facility] [place] note* Diagnosis Encounter for gynecological examination (general) (routine) without abnormal findings- Primary Encounter for screening mammogram for breast cancer documented in this encounter [facility] for referral (narrative)* Diagnostic Procedure Only (Routine) - Authorized Specialty Diagnoses / Procedures Referred By Contac t Referred To [facility] Diagnoses with uncertain date of last menstrual period in first trimester, antepartum High risk multigravida in first trimester Procedures OBSTETRIC ULTRASOUND WHI US PREG UTERUS AFTER 1ST TRIMEST 1 GESTATION Werner Murray MD [address] [place] [address] [facility] [address] [place] [address] Referral ID Status Reason Start Date Expiration Date Visits Requested Visits Authorized [id number] Authorized Auto-Generat ed Referral 2 05/02/2023 1 1 [facility] for referral (narrative)* Diagnostic Procedure Only (Routine) - Pending Review Specialty Diagnoses / Procedures Referred By Contac t Referred To [facility] Diagnoses 15 weeks gestation of AMA (advanced maternal age) multigravida 35+, second trimester Procedures OBSTETRIC ULTRASOUND WHI US PREG UTERUS AFTER 1ST TRIMEST GESTATION Werner Murray MD [address] [place] [address] [facility] [address] [place] [address] Referral ID Status Reason Start Date Expiration Date Visits Requested Visits Authorized [id number] Pending Review Auto-Generat ed Referral 06/10/2022 06/10/2023 1 1 [facility] for referral (narrative)* Outpatient Procedure (Routine) - Authorized Specialty Diagnoses / Procedures Referred By Contac t Referred To Contact [facility] Diagnoses AMA (advanced maternal age) multigravida 35+, third trimester High-risk in third trimester Procedures NON-STRESS TEST NON-STRESS TEST Werner Murray MD [address] [place] [place] [address] [facility] [address] [place] [id number] Referral ID Status Reason Start Date Expiration Date Visits Requested Visits Authorized [id number] Authorized Auto-Generat ed Referral 11/11/2022 11/11/2023 2 1 [facility] Diagnostic Procedure Only (Routine) - New Request Specialty Diagnoses / Procedures Referred By Olu colón Referred To Contact [facility] Diagnoses Encounter for gynecological examination (general) (routine) without abnormal findings Encounter for screening mammogram for breast cancer Procedures RAYMUNDO SCREENING W MARIO ALBERTO SCREENING DIGITAL BREAST TOMOSYNTHESIS BI SCREENING MAMMOGRAPHY BI 2-VIEW BREAST INC CAD Werner Murray MD [address] [place] [address] [facility] [address] [place] [id number] Referral ID Status Reason Start Date Expiration Date Visits Requested Visits Authorized [id number] New Request Auto-Generat ed Referral 01/11/2024 02/09/2025 1 1 [facility] Concerns Problem Noted Date OB Reminders 05/13/2022 Problem Noted Date OB Reminders 05/13/2022 Problem Noted Date OB Reminders 05/13/2022 Problem Noted Date OB Reminders 05/13/2022 Problem Noted Date OB Reminders 05/13/2022 Problem Noted Date OB Reminders 05/13/2022 Problem Noted Date OB Reminders 05/13/2022 Problem Noted Date OB Reminders 05/13/2022 Problem Noted Date Diagnosed Date OB Reminders 05/13/2022 Problem Noted Date Diagnosed Date OB Reminders 05/13/2022 Problem Noted Date Diagnosed Date OB Reminders 05/13/2022 Problem Noted Date Diagnosed Date OB Reminders 05/13/2022 Summary Purpose Family History No Family History Records Found Advance Directives No Advanced Directives Records Found Additional Source Comments Source Comments (unrecognize d section and content) In the event this informatio n is protected by the Federal Confidentiality of Alcohol and Drug Abuse Patient Records regulations: The Federal rules restrict any use of the information to criminally investigate or prosecute any alcohol or drug abuse patient.[facility] the event this information is protected by the Federal Confidentiality of Alcohol and Drug Abuse Patient Records regulations: The Federal rules restrict any use of the information to criminally investigate or prosecute any alcohol or drug abuse patient.[facility] the event this information is protected by the Federal Confidentiality of Alcohol and Drug Abuse Patient Records regulations: The Federal rules restrict any use of the information to criminally investigate or prosecute any alcohol or drug abuse patient.[facility] the event this information is protected by the Federal Confidentiality of Alcohol and Drug Abuse Patient Records regulations: The Federal rules restrict any use of the information to criminally investigate or prosecute any alcohol or drug abuse patient.[facility] Hospital[facility] the event this information is protected by the Federal Confidentiality of Alcohol and Drug Abuse Patient Records regulations: The Federal rules restrict any use of the information to criminally investigate or prosecute any alcohol or drug abuse patient.[facility] the event this information is protected by the Federal Confidentiality of Alcohol and Drug Abuse Patient Records regulations: The Federal rules restrict any use of the information to criminally investigate or prosecute any alcohol or drug abuse patient.[facility] the event this information is protected by the Federal Confidentiality of Alcohol and Drug Abuse Patient Records regulations: The Federal rules restrict any use of the information to criminally investigate or prosecute any alcohol or drug abuse patient.[facility] the event this information is protected by the Federal Confidentiality of Alcohol and Drug Abuse Patient Records regulations: The Federal rules restrict any use of the information to criminally investigate or prosecute any alcohol or drug abuse patient.[facility] Hospital[facility] the event this information is protected by the Federal Confidentiality of Alcohol and Drug Abuse Patient Records regulations: The Federal rules restrict any use of the information to criminally investigate or prosecute any alcohol or drug abuse patient.[facility] the event this information is protected by the Federal Confidentiality of Alcohol and Drug Abuse Patient Records regulations: The Federal rules restrict any use of the information to criminally investigate or prosecute any alcohol or drug abuse patient.[facility] Hospital[facility] the event this information is protected by the Federal Confidentiality of Alcohol and Drug Abuse Patient Records regulations: The Federal rules restrict any use of the information to criminally investigate or prosecute any alcohol or drug abuse patient.[facility] the event this information is protected by the Federal Confidentiality of Alcohol and Drug Abuse Patient Records regulations: The Federal rules restrict any use of the information to criminally investigate or prosecute any alcohol or drug abuse patient.[facility] Hospital[facility] the event this information is protected by the Federal Confidentiality of Alcohol and Drug Abuse Patient Records regulations: The Federal rules restrict any use of the information to criminally investigate or prosecute any alcohol or drug abuse patient.[facility] the event this information is protected by the Federal Confidentiality of Alcohol and Drug Abuse Patient Records regulations: The Federal rules restrict any use of the information to criminally investigate or prosecute any alcohol or drug abuse patient.[facility] Hospital[facility] the event this information is protected by the Federal Confidentiality of Alcohol and Drug Abuse Patient Records regulations: The Federal rules restrict any use of the information to criminally investigate or prosecute any alcohol or drug abuse patient.[facility] the event this information is protected by the Federal Confidentiality of Alcohol and Drug Abuse Patient Records regulations: The Federal rules restrict any use of the information to criminally investigate or prosecute any alcohol or drug abuse patient.[facility] the event this information is protected by the Federal Confidentiality of Alcohol and Drug Abuse Patient Records regulations: The Federal rules restrict any use of the information to criminally investigate or prosecute any alcohol or drug abuse patient.[facility] the event this information is protected by the Federal Confidentiality of Alcohol and Drug Abuse Patient Records regulations: The Federal rules restrict any use of the information to criminally investigate or prosecute any alcohol or drug abuse patient.[facility] the event this information is protected by the Federal Confidentiality of Alcohol and Drug Abuse Patient Records regulations: The Federal rules restrict any use of the information to criminally investigate or prosecute any alcohol or drug abuse patient.[facility] the event this information is protected by the Federal Confidentiality of Alcohol and Drug Abuse Patient Records regulations: The Federal rules restrict any use of the information to criminally investigate or prosecute any alcohol or drug abuse patient.[facility] Reason for Visit (unrecogniz ed section and content) Reason Comments Care Reason Comments Initial OB Visit Reason Comments US Specialty Diagnoses / Procedures Referred By Olu colón Referred To Contact [facility] Diagnoses with uncertain date of last menstrual period in first trimester, antepartum High risk multigravida in first trimester Procedures OBSTETRIC ULTRASOUND WHI US PREG UTERUS AFTER 1ST TRIMEST GESTATION Werner Murray MD [address] [place] [address] [facility] [address] [place] [id number] Referral ID Status Reason Start Date Expiration Date V isits Requested Visits Authorized [id number] Closed Auto-Generate d Referral 05/02/2022 05/02/2023 1 1 Reason Comments Outside Testing Reason Comments Results Elizabeth Panorama Reason Onset Date Comments Care 06/10/2022 Reason Onset Date Comments Care 07/07/2022 Reason Onset Date Comments Care 08/08/2022 Reason Comments Results Reason Onset Date Comments Care 09/03/2022 Reason Onset Date Comments Care 10/01/2022 Reason Onset Date Comments Care 10/15/2022 Reason Onset Date Comments Care 11/06/2022 Reason Onset Date Comments Care 11/11/2022 Reason Onset Date Comments Care 11/20/2022 Reason Comments Ob Delivery Note Reason Comments FMLA Paperwork Reason Comments Routine Reason Comments Yearly Exam Care Teams (unrecognized sec tion and content) Quality Control Industrial Engineer Relationship Specialty Start Date End Date Kia Wall DO PCP - General Family Medicine 01/29/15 Quality Control Industrial Engineer Relationship Specialty Start Date End Date Kia Wall DO PCP - General Family Medicine 01/29/15 [employer] Relationship Specialty Start Date End Date Kia Wall DO PCP - General Family Medicine 01/29/15 [employer] Industrial Engineer Relationship Specialty Start Date End Date Kia Wall DO PCP - General Family Medicine 01/29/15 [employer] Industrial Engineer Relationship Specialty Start Date End Date Kia Wall DO PCP - General Family Medicine 01/29/15 [employer] Industrial Engineer Relationship Specialty Start Date End Date Kia Wall DO PCP - General Family Medicine 01/29/15 [employer] Industrial Engineer Relationship Specialty Start Date End Date Kia Wall DO PCP - General Family Medicine 01/29/15 [employer] Industrial Engineer Relationship Specialty Start Date End Date Kia Wall DO PCP - General Family Medicine 01/29/15 [employer] Industrial Engineer Relationship Specialty Start Date End Date Kia Wall DO PCP - General Family Medicine 01/29/15 [employer] Industrial Engineer Relationship Specialty Start Date End Date Kia Wall DO PCP - General Family Medicine 01/29/15 [employer] Industrial Engineer Relationship Specialty Start Date End Date Kia Wall DO PCP - General Family Medicine 01/29/15 [employer] Industrial Engineer Relationship Specialty Start Date End Date Kia Wall DO PCP - [facility] 01/29/15 [employer] Industrial Engineer Relationship Specialty Start Date End Date Kia Wall DO PCP - [facility] 01/29/15 [employer] Industrial Engineer Relationship Specialty Start Date End Date Kia Wall DO PCP - [facility] 01/29/15 [employer] Control Industrial Engineer Relationship Specialty Start Date End Date Kia Wall DO [facility] - [facility] 01/29/15 INFORMATION SOURCE (unrecogn ized section and content) DATE CREATED AUTHOR 01/17/2024 [facility] FOR RECORDS PERTAINING TO PATIENTS WHO ARE OR HAVE BEEN ENROLLED IN A CHEMICAL DEPENDENCY/SUBSTANCEABUSE PROGRAM, SOME INFORMATION MAY BE OMITTED. This clinical summary was aggregated from multiple sources. Caution should be exercised in using it in the provision of clinical care. This summary normalizes information from multiple sources, and as a consequence, information in this document may materially change the coding, format and clinical context of patient data. In addition, data may be omitted in some cases. CLINICAL DECISIONS SHOULD BE BASED ON THE PRIMARY CLINICAL RECORDS. [employer] [facility]. provides no warranty or guarantee of the accuracy or completeness of information in this document.
[2024-02-19 11:34] LABS: Free T3 3.3 pg/mL (2.18-3.98); T4 Free Direct 0.95 ng/dL (0.76-1.46)
== END | disposition home or self-care (01) ==
LOC: MTLAB 09:15
PROVIDERS: PCP Family Medicine; Referring Provider Family Medicine; Visit Provider Family Medicine
DX: E03.9 Hypothyroidism, unspecified (principal)
CPT/HCPCS: 36415; 84439; 84443; 84481